=== PATIENT | female | born 1955 | race Caucasian/White ===

== ENCOUNTER 2024-02-25 10:14 | Outpatient (AMB) | payer MEDICARE, SELFPAY ==
--- NOTE | 2024-02-25 10:20 | HO.NEPHOV_ITS ---
Vital Signs 02/25/24 10:25 Height 5 ft 7 in Weight 175 lb BMI 27.4 BP 110/70 Blood Pressure Location Lt brachial Position Sitting Pulse 104 H Pulse Source Pulse Oximeter Pulse Oximetry (%) 94 Oxygen Delivery Method Room Air Intake Visit Reasons: Continuing care/ CON Aircrewman Required: No Accompanied by: Self / Same As Patient Allergies No Known Allergies Allergy (Verified 02/25/24 10:22) Medication List - Last Reconciled 02/25/24 by Tenzin Spencer MD amlodipine 10 mg PO DAILY aspirin 81 mg PO DAILY atorvastatin mg PO DAILY blood sugar diagnostic (Accu-Chek Connie Plus test strips) As directed canagliflozin (Invokana) 100 mg PO DAILY cetirizine 10 mg PO DAILY fluticasone propionate 50 mcg/actuation sprays intranasal folic acid 1 mg PO DAILY furosemide mg PO Q OTHER DAY gabapentin 600 mg PO TID linagliptin (Tradjenta) 5 mg PO DAILY metformin ER 1,000 mg PO BID mirabegron ER (Myrbetriq) 25 mg PO DAILY triamcinolone acetonide 0.1% 1 appl topical BID-TID valsartan 80 mg PO DAILY HPI Comments Details: Pleasant 68 woman with a history of hypertension and chronic alcohol use. She was initially seen for hyponatremia. Lisinopril has been switched to Valsartan She used to drink vodka 2-3 drinks a day along with plenty of water. Now she has cut down alcohol intake [facility] Medical History (Updated 02/25/24 @ 10:29 by Tenzin Spencer MD) Hyperlipidemia Hyposmolality and/or hyponatremia Essential (primary) hypertension Type 2 diabetes mellitus without complication Surgical History (Updated 02/25/24 @ 10:28 by Vianney Quinones MA) Hx of cataract surgery History of hip replacement H/O tubal ligation Family History (Updated 02/25/24 @ 10:29 by Vianney Quinones MA) Mother Heart disease Hypertension Social History (Updated 02/25/24 @ 10:29 by Vianney Quinones MA) Alcohol intake: current Patient Tobacco Use Status: Former Tobacco user Use of substances other than those prescribed or required for medical reasons: No Physical Exam Vital Signs: Last Vital Signs Pulse 104 H 02/25/24 10:25 BP 110/70 02/25/24 10:25 Pulse Ox 94 02/25/24 10:25 Oxygen Delivery Method Room Air 02/25/24 10:25 BMI result Body Mass Index 27.4 Const General: comfortable; No acute distress Orientation/consciousness: patient oriented x3 Eyes General: appearance normal, both eyes and all related structures Visual Collier: normal visual collier by confrontation Neck Neck: Yes supple and Yes no JVD Resp Effort & Inspection: normal respiratory effort and respiratory effort not decreased Auscultation: rhonchi Cardio Palpation: no palpable S3 and no palpable S4 Heart sounds: no rubs GI Inspection: Yes normal to inspection Palpation (GI): Soft to palpation Percussion: Yes normal to percussion Auscultation: normal bowel sounds General: Yes no CVA tenderness Back/Spine/Pelvis Back: no CVA tenderness Skin General skin exam: no petechiae and no purpura Neuro General: patient oriented x3 and no focal motor deficits Extrem General: No clubbing and No edema Results Reviewed Results Reviewed: 02/23/24 Na 136 Cr 1.1 Nephrology Results: No Data to Display Assessment & Plan Assessment & Plan (1) Essential (primary) hypertension: Code(s): I10 - Essential (primary) hypertension Category: Medical Plan: BP well controlled No changes in medications (2) Hyposmolality and/or hyponatremia: Code(s): E87.1 - Hypo-osmolality and hyponatremia Category: Medical Plan: Sodium is acceptable Keep PO water trestriction of 1L per 24 hr Limit alcohol intake.. Plan Edema- asymptomatic May be due to Amlodipine Monitor DM Maintain A1C < 7% Concur with SGLT-2 inhibitors Orders: Orders Basic Metabolic Panel 6 Months E87.1 - Hypo-osmolality and hyponatremia, I10 - Essential (primary) hypertension Total Protein Urine Random 6 Months E87.1 - Hypo-osmolality and hyponatremia, I10 - Essential (primary) hypertension Creatinine Urine 6 Months E87.1 - Hypo-osmolality and hyponatremia, I10 - Es sential (primary) hypertension Coding Level of Care Code Est Pt Level 4 (22250) Diagnoses Essential (primary) hypertension I10 Hyposmolality and/or hyponatremia E87.1
[2024-02-25 10:25] VITALS: BP 110/70; PULSE 104; O2SAT 94; BMI 27.4
== END 2024-02-25 10:40 | disposition home or self-care (01) ==
PROVIDERS: PCP Internal Medicine; Visit Provider Internal Medicine Hypertension Specialist
DX: I10 Essential (primary) hypertension (principal); E87.1 Hypo-osmolality and hyponatremia
CPT/HCPCS: 99214

== ENCOUNTER → 2024-02-25 10:14 | Outpatient (BNVA) | payer MEDICARE, SELFPAY | PROVIDERS: PCP Internal Medicine; Visit Provider Internal Medicine Hypertension Specialist | DX: I10 Essential (primary) hypertension (principal); E87.1 Hypo-osmolality and hyponatremia | CPT/HCPCS: 99212 ==

== ENCOUNTER 2024-08-25 13:47 | Outpatient (AMB) | payer MEDICARE, OTHER, SELFPAY ==
[2024-08-25 13:51] VITALS: BP 110/64; PULSE 113; O2SAT 94; BMI 26.9
--- NOTE | 2024-08-25 13:51 | HO.NEPHOV_ITS ---
Vital Signs 08/25/24 13:51 Height 5 ft 7 in Weight 172 lb BMI 26.9 BP 110/64 Blood Pressure Location Lt brachial Position Sitting Pulse 113 H Pulse Source Pulse Oximeter Pulse Oximetry (%) 94 Oxygen Delivery Method Room Air Intake Visit Reasons: 6 mon follow up/ LVM Electrical Electronics Engineers Required: No Accompanied by: Self / Same As Patient Allergies No Known Allergies Allergy (Verified 08/25/24 13:53) Medication List - Last Reconciled 08/25/24 by Tenzin Spencer MD amlodipine 10 mg PO DAILY aspirin 81 mg PO DAILY atorvastatin mg PO DAILY blood sugar diagnostic (Accu-Chek Connie Plus test strips) As directed canagliflozin (Invokana) 100 mg PO DAILY cetirizine 10 mg PO DAILY fluticasone propionate 50 mcg/actuation sprays intranasal folic acid 1 mg PO DAILY furosemide mg PO Q OTHER DAY gabapentin 600 mg PO TID linagliptin (Tradjenta) 5 mg PO DAILY metformin ER 1,000 mg PO BID mirabegron ER (Myrbetriq) 25 mg PO DAILY triamcinolone acetonide 0.1% 1 appl topical BID-TID valsartan 80 mg PO DAILY HPI Comments Details: Pleasant 68 woman with a history of hypertension and chronic alcohol use. She was initially seen for hyponatremia. Lisinopril has been switched to Valsartan She used to drink vodka 2-3 drinks a day along with plenty of water. Now she has cut down alcohol intake COUNTS INCLUDE 234 BEDS AT THE [facility] Medical History (Updated 02/25/24 @ 10:29 by Tenzin Spencer MD) Hyperlipidemia Hyposmolality and/or hyponatremia Essential (primary) hypertension Type 2 diabetes mellitus without complication Surgical History Hx of cataract surgery History of hip replacement H/O tubal ligation Family History Mother Heart disease Hypertension Social History Alcohol intake: current Patient Tobacco Use Status: Former Tobacco user Physical Exam Vital Signs: Last Vital Signs Pulse 113 H 08/25/24 13:51 BP 110/64 08/25/24 13:51 Pulse Ox 94 08/25/24 13:51 Oxygen Delivery Method Room Air 08/25/24 13:51 BMI result Body Mass Index 26.9 Results Reviewed Nephrology Results: No Data to Display Assessment & Plan Assessment & Plan (1) Essential (primary) hypertension: Code(s): I10 - Essential (primary) hypertension Category: Medical Plan: BP well controlled No changes in medications (2) Hyposmolality and/or hyponatremia: Code(s): E87.1 - Hypo-osmolality and hyponatremia Category: Medical Plan: Sodium is acceptable Keep PO water trestriction of 1L per 24 hr Limit alcohol intake.. Plan Edema- asymptomatic May be due to Amlodipine Monitor DM Maintain A1C < 7% Concur with SGLT-2 inhibitors Orders: Orders Basic Metabolic Panel 6 Months E87.1 - Hypo-osmolality and hyponatremia Basic Metabolic Panel 12 Months E87.1 - Hypo-osmolality and hyponatremia Coding Level of Care Code Est Pt Level 4 (69214) Diagnoses Essential (primary) hypertension I10 Hyposmolality and/or hyponatremia E87.1
--- OUTSIDE RECORDS SUMMARY | 2024-08-25 16:56 | XMS_ITS | Encounter Summary ---
Author Organization [facility] [place] [address] Care Team Providers Care Restaurant Floor Manager Name Role Phone Tenisha Cruz MD Primary Care Provider [phone] Reason for Visit * Reason Onset Date Comments FYI 08/06/2024 Encounter Details Date Type Department Care Team (Late st Contact Info) Description 08/06/2024 Telephone Internal Medicine - [place] [address] [place] [address] Jen Ozuna, RN Social History Tobacco Use Types Packs/Day Years Used Date Smoking Tobacco: Never Smokeless Tobacco: Never Alcohol Use Standard Drinks/Week Comments Yes 0 (1 standard drink = 0.6 oz pur e alcohol) Comments No Sex and Gender Information Value Date Recorded Sex Assigned at Female 05/11/2024 11:18 AM EST Legal Sex Female 3:37 AM EST Gender Identity Female 05/11/2024 11:18 AM EST Sexual Orientation Straight 05/11/2024 11 :18 AM EST documented as of this encounter Progress Notes * Jen Ozuna RN - 08/06/2024 1:37 PM EST [facility] [place], contact # [phone], called to report finding on physical exam today, L sided carotid bruit +1; pt is asymptomatic, BP 118/62 HR 80 at rest; recommendation of US of carotid artery; he did not feel this was emergent and can be evaluated at upcoming appt next week 08/11/2023 documented in this encounter Plan of Treatment Upcoming Encounters Date Type Department Care Team (Late st Contact Info) Description 11/08/2024 11:15 AM EDT [facility] [place] [address] [place] [id number] Georgina Gilbert PA [address] [place], [place] [id number] 02/08/2025 11:00 AM EDT Office Visit Internal Medicine - [place] [address] [place] [phone] Tenisha Cruz MD [address] [place] [address] documented as of this encounter Visit Diagnoses Not on filedocumented in this encounter Care Teams Restaurant Floor Manager Relationship Specialty Start Date End Date Tenisha Cruz MD [address] [place] [address] PCP - General Internal Medicine 02/20/22 documented as of this encounter
--- OUTSIDE RECORDS SUMMARY | 2024-08-25 16:56 | XMS_ITS | Clinical Summary ---
Author Organization [facility] Address [address] [place] [address] Phone Care Team Providers Care Deaf/Hard Of Hearing Specialist Name Role Phone Skip Levy MD Primary Care Provider Unavail able Allergies No known active allergies Medications aspirin 81 MG chewable tablet Chew 81 mg in the morning. Active atorvastatin (LIPITOR) 20 MG tablet Take 20 mg by mouth 1 (one) time each day 05/30/20 21 Active Canagliflozin (Invokana) 100 MG tablet Take 1 tablet by mouth 1 (one) time each day 09/17/19 23 Active cetirizine (ZyrTEC) 10 MG tablet Take 10 mg by mouth 1 (one) time each day 09/15/19 23 Active folic acid (FOLVITE) 1 MG tablet Take 1,000 mcg by mouth 1 (one) time each day 09/02/19 23 Active furosemide (LASIX) 20 MG tablet Take 20 mg by mouth 1 (one) time each day 08/26/19 23 Active gabapentin (NEURONTIN) 300 MG capsule Take 600 mg by mouth in the morning and 600 mg at noon and 600 mg in the evening. 09/19/19 23 Active linaGLIPtin (Tradjenta) 5 MG tablet Take 5 mg by mouth 1 (one) time each day 05/31/20 21 Active metFORMIN XR (GLUCOPHAGE-XR ) 500 MG 24 hr tablet TAKE 2 TABLETS (1,000 MG TOTAL) BY MOUTH 2 (TWO) TIMES A DAY BEFORE BREAKFAST AND DINNER. 08/25/19 23 Active Multiple Vitamins-Sherman als (Strovite ONE) tablet Take 1 tablet by mouth 1 (one) time each day 05/13/20 17 Active Na Sulfate-K Sulfate-Mg Sulf 17.5-3.13-1.6 GM/177ML solution Follow directions provided by physician's office. 06/11/20 21 Active fluticasone (FLONASE) 50 MCG/ACT nasal spray SPRAY/APPLY 1 SPRAY IN EACH NOSTRIL DAILY 11/04/19 23 Active amLODIPine (NORVASC) 10 MG tablet Take 10 mg by mouth 1 (one) time each day 11/16/19 23 Active triamcinolone (KENALOG) 0.1 % cream APPLY TO AFFECTED AREA TWICE A DAY 12/19/19 23 Active valsartan (DIOVAN) 80 MG tablet TAKE 1 TABLET BY MOUTH 1 TIME EACH DAY. 90 tablet 3 07/30/19 25 Active valsartan (DIOVAN) 80 MG tablet Take 1 tablet (80 mg total) by mouth 1 (one) time each day 90 tablet 3 07/14/19 24 025 Discontinued Active Problems Problem Noted Date Diagnosed Date Urgent desire to urinate 08/01/2023 Neuropathy due to type 2 diabetes mellitus 09/24 Hypertension 09/24/2022 Hyperlipidemia 09/24/2022 Diabetes mellitus 09/24/2022 Depressive disorder 09/24/2022 Alcoholism 09/24/2022 Vitamin B deficiency 09/24/2022 Tachycardia 06/26/2022 Posterior rhinorrhea 06/26/2022 Hyponatremia 06/26/2022 Weight increased 06/26/2022 Overview (03/30/2024): Replacing diagnoses that were inactivated after the 03/30/24 Regulatory Import Hypercalcemia 06/05/2022 Type 2 diabetes mellitus with hyperglycemia 12/2021 Nuclear senile cataract 11/06/2020 Bilateral age-related cataract 11/06/2020 Laryngopharyngeal reflux 05/13/2017 Anxiety 05/13/2017 Type 2 diabetes mellitus in obese 05/13/2017 Encounters Date Type Department Care Team Description 07/29/2024 Refill [facility] [address] [place] [phone] Gabriel Head MD from Last 3 Months Immunizations Name Administration Dates Next Due Influenza Vaccine, Quadrival ent, Adjuvanted 03/07/2023 Influenza, MDCK, PF, Quadrivalent 2019,04/05/2019,03/31/2017,2014 Influenza, Quadrivalent, Pre servative Free 02/22/2022,04/02/2021,03/26/2018,2015 Influenza, Quadrivalent, Wit h Preservative 03/26/2018 Moderna Sars-cov-2 (Covid-19 ) Vaccine, Mrna, Cruz Protein 03/31/2023 Pfizer SARS-COV-2 06/12/2021,10/12/2020,09/22/19 Pneumococcal Conjugate 13-Valent 04/19/2022 Shingrix 05/30/2022,02/01/2022 Tdap 10/27/2017 Zoster 05/30/2022 Family History Relation Status Comments Father Mother Social History Tobacco Use Types Packs/Day Years Used Date Smoking Tobacco: Never Smokeless Tobacco: Never Tobacco Cessation:Counseling Given: No Comments Unknown Sex and Gender Information Value Date Recorded Sex Assigned at Not on file Legal Sex Female 8:57 AM EST Gender Identity Not on file Sexual Orientation Not on file Last Filed Vital Signs Vital Sign Reading Time Taken Comments Blood Pressure 112/60 08/26/2023 1:35 PM EST Pulse 92 08/26/2023 1:35 PM EST Temperature - - Respiratory Rate - - Oxygen Saturation 94% 08/26/2023 1:35 PM EST Inhaled Oxygen Concentration - - Weight 68 kg (150 lb) 08/26/2023 1:35 PM EST Height - - Body Mass Index - - Plan of Treatment Upcoming Encounters Date Type Department Care Team (Late st Contact Info) Description 09/14/2024 2:45 PM EDT Office Visit [facility] [address] [facility] [address] [place] [phone] Gabriel Head MD [address] [facility] [address] [place] [phone] Health Maintenance Due Date Last Done Comments Breast Cancer Screening 1957 Colorectal Cancer Screening: Annual FOBT 2006 Colorectal Cancer Screening: Colonoscopy 2006 Colorectal Cancer Screening: Sigmoidoscopy 2006 Pneumococcal Vaccine: 65+ Years (2 of 2 - PPSV23 or PCV20) 06/14/2022 04/19/2022 Diabetes: Ophthalmology Exam 08/08/2022 Diabetes: Pedal Pulse Checked 08/08/2022 Diabetes: Sensory Foot Exam 08/08/2022 Diabetes: Visual Foot Exam 08/08/2022 Diabetes: Hemoglobin A1C 10/30/2023 08/01/2023, 06/30 Influenza Vaccine (#1) 2024 3, 02/22/2022, 04/02/2021, Additional history exists Hepatitis B Vaccine Aged Out No longe r eligible based on patient's age to complete this topic Care Teams Deaf/Hard Of Hearing Specialist Relationship Specialty Start Date End Date Skip Levy MD [address] [place] [address] PCP - General Internal Medicine 02/04/23
--- OUTSIDE RECORDS SUMMARY | 2024-08-25 16:56 | XMS_ITS | Encounter Summary ---
Author Organization [facility] Address [address] [place] [address] Care Team Providers Care Fire Supervisor Name Role Phone Nkechi Cowan APRN Primary Care Provider [phone] Encounter Details Date Type Department Care Team (Late st Contact Info) Description 06/05/2021 Scanned Document [facility] [address] [place] [address] Provider, External, [address] [place] [address] Social History Tobacco Use Types Packs/Day Years Used Date Smoking Tobacco: Never Assessed Sex and Gender Information Value Date Recorded Sex Assigned at Not on file Gender Identity Not on file Sexual Orientation Not on file documented as of this encounter Plan of Treatment Not on file documented as of this encounter Visit Diagnoses Not on filedocumented in this encounter Care Teams Fire Supervisor Relationship Specialty Start Date End Date Nkechi Cowan APRN PCP - General Family Medicine 06/05/21 documented as of this encounter
--- OUTSIDE RECORDS SUMMARY | 2024-08-25 16:56 | XMS_ITS | Clinical Summary ---
Author Organization [facility] Address [address] [place] [address] Care Team Providers Care Product Picker Name Role Phone Unavailable Primary Care Provider Unavailabl e Social History Tobacco Use Types Packs/Day Years Used Date Smoking Tobacco: Never Assessed Comments Unknown Sex and Gender Information Value Date Recorded Sex Assigned at Not on file Legal Sex Female 5:43 PM EST Gender Identity Not on file Sexual Orientation Not on file Plan of Treatment Health Maintenance Due Date Last Done Comments Colorectal Cancer: COLONOSCO PY Screening every 10 yrs (or Modifier) 1957 Depression: Screening Annual ly using PHQ-2/9 in Adults 18 yrs or above (or HM Modifier)([facility]) 1975 Hepatitis C Virus Infection in Adolescents and Adults: Screening (or Modifier) ([facility]) 1975 SDCA Screening Reminder: Suzie castillo for all adults ([facility]) 1975 Tobacco Smoking Cessation: i n Adults excluding Women: Behavioral and Pharmacotherapy Interventions ([facility]) 1975 Colorectal Cancer Screening 45 -75 Yrs (or HM Modifier) 2002 Colorectal Cancer: FLEXIBLE SIGMOIDOSCOPY Screening every 5 yrs 2002 Colorectal Cancer: Fecal Immunochemical Test (FIT) Annually [facility] 2002 Colorectal Cancer: High-sens itivity gFOBT Screening Annually [facility] 2002 Colorectal Cancer: Stool Col oguard Screening every 3 yrs 2002 Colorectal Cancer:CT Colonog brett Screening every 5 yrs 2002 Lipid Screening: Every 5 yrs for Women aged 45+ (or HM Modifier) ([facility]) 2003 Breast Cancer: Screening Suzie anna age 50-74 yrs (or HM Modifier)([facility]) 2007 Zoster/Shingles Vaccine Seri es Screening: Adults aged 18+ yrs (or HM Modifiers)([facility]) (1 of 2) 2007 Osteoporosis Screening to Pr event Fractures: Women aged 65 years+ ([facility]) 2022 Pneumococcal Vaccination Scr eening: Patients 65+ yrs of age ([facility]) (1 of 1 - PCV) 2022 Flu Vaccination: Ages 65+: Y early High Dose Recommended (or Modifier)([facility]) 01/29/2024 03/17/2020 COVID-19 Vaccine Screening: Initial Series and Booster Status ([facility]) ( - 2023- season) 2024 06/12/2021, 10/12/2020, 09/21/2020 DTaP/Tdap/Td Vaccines ([facility]) (2 - Td or Tdap) 10/28/2027 10/27/2017 RSV Vaccines (1 - 1-dose 75+ series) 2032 [employer] Devices Not on file Insurance [place] MEDICAID
--- OUTSIDE RECORDS SUMMARY | 2024-08-25 16:56 | XMS_ITS | Clinical Summary ---
Author Organization [facility] Address [address] [place] [address] Care Team Providers Care Process Engineering Technician Name Role Phone Ruy Guido Primary Care Provider Unav ailable Social History Tobacco Use Types Packs/Day Years Used Date Smoking Tobacco: Never Assessed Comments Unknown Sex and Gender Information Value Date Recorded Sex Assigned at Not on file Legal Sex Female 9:02 PM EDT Gender Identity Not on file Sexual Orientation Not on file Plan of Treatment Health Maintenance Due Date Last Done Comments Hepatitis C Screening 1955 DTaP/Tdap/Td (1 - Tdap) 1975 Mammogram/Breast Imaging 1997 Colon Cancer Screening 2002 Pneumococcal 50+ years (1 of 1 - PCV) 2007 Zoster (Shingrix) (1 of 2) 2007 Bone Density 2022 COVID-19 Vaccine ( - 2023-2 5 season) 2024 Influenza (#1) 2024 RSV (1 - 1-dose 75+ series) 2032 HPV Vaccine Aged Out No longer eligi ble based on patient's age to complete this topic Hep A Aged Out No longer eligi ble based on patient's age to complete this topic Hep B Aged Out No longer eligi ble based on patient's age to complete this topic Hib Aged Out No longer eligi ble based on patient's age to complete this topic Meningococcal ACWY Aged Out No longer eligible based on patient's age to complete this topic Pap Smear Discontinued Zoster (Zostavax) Discontinued Care Teams Process Engineering Technician Relationship Specialty Start Date End Date Ruy Guido PCP - General 02/03/23
--- OUTSIDE RECORDS SUMMARY | 2024-08-25 16:56 | XMS_ITS | Clinical Summary ---
Author Organization [facility] Address [address] [place] [address] Care Team Providers Care Bank Compliance Officer Name Role Phone Nkechi Cowan APRN Primary Care Provider [phone] Allergies No known active allergies Medications Medication Sig Dispensed Refills Start Date End Date Status amLODIPine (NORVASC) 5 MG tablet 06/01/2021 Active atorvastatin (LIPITOR) 20 MG tablet 05/30/2021 Active Invokana 300 MG Tab tablet 06/02/2021 Active captopril (CAPOTEN) 25 MG tablet 04/23/2021 Active folic acid (FOLVITE) 1 MG tablet 05/29/2021 Active Tradjenta 5 MG Tab 05/31/2021 Active gabapentin (NEURONTIN) 300 MG capsule 06/04/2021 Active metFORMIN (GLUCOPHAGE) 500 MG tablet 05/25/2021 Active Accu-Chek Connie Plus strip 05/25/2021 Active aspirin 81 MG chewable tablet Chew 81 mg daily. Ac tive axsxpx-cvlrytpzd-zvk nesium sulfates (Suprep Bowel Prep Kit) 17.5-3.13-1.6 GM/177ML Solution solutionIndications: Colon cancer screening Follow directions provided by physician's office. 177 mL 06/11/2021 Active bisacodyl (DULCOLAX) 5 MG EC tabletIndications:Co kiki cancer screening Take 4 tablets (20 mg total) by mouth once. Take prior to starting to drink prep, on day prior to colonoscopy. 4 tablet 06/11/2021 Active Immunizations Name Administration Dates Next Due Covid-19 MRNA Vaccine - Pfiz er 12+ (Purple Cap) 06/12/2021,10/12/2020,09/21/2020 Social History Tobacco Use Types Packs/Day Years Used Date Smoking Tobacco: Never Assessed Sex and Gender Information Value Date Recorded Sex Assigned at Not on file Gender Identity Not on file Sexual Orientation Not on file Last Filed Vital Signs Vital Sign Reading Time Taken Comments Blood Pressure - - Pulse - - Temperature - - Respiratory Rate - - Oxygen Saturation - - Inhaled Oxygen Concentration - - Weight 72.6 kg (160 lb) 06/11/2021 10:21 AM EST Height 167.6 cm (5' 6 ) 06/11/2021 10:21 AM EST Body Mass Index 25.82 06/11/2021 10:21 AM EST Plan of Treatment Health Maintenance Due Date Last Done Comments Hepatitis C Virus Screening 1955 DTaP/Tdap/Td Vaccines (1 - Tdap) 1976 Mammogram 1997 Pneumococcal Vaccines 50+ (1 of 1 - PCV) 2007 Zoster (Shingles) Vaccine (1 of 2) 2007 RSV Vaccine 60 years and older and Patients (1 - Risk 60-74 years 1-dose series) 2017 DXA Bone Density (Females,Ages 65 and older) 2022 Influenza Vaccine 01/29/2024 04/02/2021 COVID-19 Vaccine ( season) 2024 06/12/2021, 10/12/2020, 09/21/2020 Colonoscopy 09/11/2031 09/10/2021 Hemoglobin A1C Discontinued 11/06/2020 Hepatitis B Vaccines Aged Out No long er eligible based on patient's age to complete this topic Care Teams Bank Compliance Officer Relationship Specialty Start Date End Date Nkechi Cowan APRN PCP - General Family Medicine 06/05/21
--- OUTSIDE RECORDS SUMMARY | 2024-08-25 16:56 | XMS_ITS | Encounter Summary ---
Author Organization [facility] [address] Care Team Providers Care Electronic Prepress System Operator Name Role Phone Tenisha Cruz MD Primary Care Provider [phone] Reason for Referral * Imaging (Routine) - Pending Review Specialty Diagnoses / Procedures Referred By Timbo cox Referred To Contact Diagnoses Left carotid bruit Procedures Vascular US duplex carotid bilateral Estelita Tee MD [address] [place] [address] Phone: tel: fax: [facility] [place] Referral ID Status Reason Start Date Expiration Date V isits Requested Visits Authorized [id number] Pending Review 08/11/2024 08/11/2025 1 1 * Imaging (Routine) - Pending Review Specialty Diagnoses / Procedures Referred By Timbo cox Referred To Contact Radiology Diagnoses Encounter for screening mammogram for malignant neoplasm of breast Procedures MG Mammo Digital Screening bilat Esteltia Tee MD [address] [place] [address] Phone: tel: fax: [facility] [place] Referral ID Status Reason Start Date Expiration Date V isits Requested Visits Authorized [id number] Pending Review 08/11/2024 08/11/2025 1 1 Reason for Visit * Reason Comments Annual Exam Medicare wellness Encounter Details Date Type Department Care Team (Late st Contact Info) Description 08/11/2024 11:00 AM EST Office Visit Internal Medicine - [place] [address] [place] [id number] Estelita Tee MD [address] [place] [address] Medicare annual wellness visit, subsequent (Primary Dx); Encounter for screening mammogram for malignant neoplasm of breast; Mixed hyperlipidemia; Left carotid bruit; Annual physical exam; Type 2 diabetes mellitus without complication, without long-term current use of insulin ([facility]); Localized swelling of lower extremity Social History Tobacco Use Types Packs/Day Years [...] AM EST documented as of this encounter Last Filed Vital Signs Vital Sign Reading Time Taken Comments Blood Pressure 116/66 08/11/2024 10:58 AM EST Pulse 101 08/11/2024 10:58 AM EST Temperature 36.3 ??C (97.3 ??F) 08/11/2024 10:[address] Respiratory Rate - - Oxygen Saturation 96% 08/11/2024 10:58 AM EST Inhaled Oxygen Concentration - - Weight 78.9 kg (174 lb) 08/11/2024 10:58 AM EST Height 168.9 cm (5' 6.5 ) 08/11/2024 10:58 AM ES T Body Mass Index 27.66 08/11/2024 10:58 AM EST documented in this encounter Progress Notes * Estelita Tee MD - 08/11/2024 11:50 AM ESTAssociated Problem(s): Left carotid bruit Asymptomatic, incidental finding during a wellness visit at home. Will order US of carotid arteries * Estelita Tee MD - 08/11/2024 11:48 AM ESTAssociated Problem(s): Localized swelling of lower extremity She reports improvement in leg swelling with the use of compression stockings and elevating her feet. She is currently taking Lasix 20 mg every other day, which helps manage the swelling. She is advised to continue these measures and avoid increasing the frequency of Lasix due to potential kidney side effects. * Estelita Tee MD - 08/11/2024 11:48 AM ESTAssociated Problem(s): Diabetes mellitus (CMS/HCC) Her diabetes is currently under control. Follows with endocrinology * Estelita Tee MD - 08/11/2024 11:47 AM ESTAssociated Problem(s): Hyperlipidemia Her triglyceride levels were significantly elevated during the last assessment ordered by shae LANCASTER. A lipid panel will be ordered, and she is advised to fast prior to the test. Currently on liptor 20 mg qdaily * Estelita Tee MD - 08/11/2024 11:46 AM ESTAssociated Problem(s): Annual physical exam Patient is a 69 y.o. female with pmhx T2DM, HLD, hx of alcohol use disorder, CKD who presents for annual physical. Vital signs and physical exam wnl Discussed screenings, Her last mammogram, conducted in 2023, was normal, indicating the need for a subsequent mammogram. Her bone density test, performed in 05/2022, suggests that a repeat test is due. She is current with her influenza and COVID-19 vaccinations, having received the latter in 03/2024 at [facility]. She has not yet received the RSV vaccine. She was administered the shingles vaccine and received the pneumonia vaccine in 2021. Will order lipid panel * Estelita Tee MD - 08/11/2024 11:00 AM EST Images from the original note were not included. Medicare Annual Wellness Visit Note Patient Name: Karla Jameson Date of : 1955 Race: White Ethnicity: Not Hispan/Lat Date of Service: 08/11/2024 History of Present Illness History of Present Illness The patient is a 69-year-old female with pmhx T2DM, CKD, lower extremity swelling who presents for her Medicare wellness visit. Please see annual physical note for preventive care discussion. Comprehensive Medical and Social History: Patient Active Problem List Diagnosis Age-related cataract of both eyes Alcoholism (CMS/HCC) Anxiety Deficiency of other specified B group vitamins Depressive disorder Diabetes mellitus (CMS/HCC) Diabetic neuropathy associated with type 2 diabetes mellitus (CMS/HCC) Hypercalcemia Hyperlipidemia Hypertension Hyponatremia Laryngopharyngeal reflux Nuclear senile cataract of both eyes Post-nasal drip Tachycardia Type 2 diabetes mellitus with hyperglycemia (CMS/HCC) Type 2 diabetes mellitus with obesity (CMS/HCC) Urinary urgency Vitamin D deficiency Weight gain Localized swelling of lower extremity No Known Allergies Current Outpatient Medications Medication Sig Dispense Refill amLODIPine (NORVASC) 10 mg tablet TAKE 1 TABLET BY MOUTH EVERY DAY 90 tablet 1 aspirin 81 mg EC tablet Take 1 tablet (81 mg total) by mouth daily. atorvastatin (LIPITOR) 20 mg tablet Take 1 tablet (20 mg total) by mouth 1 (one) time each day. 90 tablet 0 blood sugar diagnostic (Accu-Chek Connie Plus test strp) test strip USE TO TEST BLOOD SUGAR DAILY canagliflozin (Invokana) 300 mg tablet cetirizine (ZyrTEC) 10 mg tablet Take 1 tablet (10 mg total) by mouth 1 (one) time each day. 90 tablet 0 fluticasone propionate (FLONASE) 50 mcg/actuation nasal spray spray/apply 1 spray in each nostril daily. folic acid (FOLVITE) 1 mg tablet TAKE 1 TABLET EVERY DAY furosemide (LASIX) 20 mg tablet Take 1 tablet (20 mg total) by mouth every other day. 45 tablet 0 gabapentin (NEURONTIN) 300 mg capsule Take 2 capsules (600 mg total) by mouth 2 (two) times a day AND 3 capsules (900 mg total) at bedtime. 210 each 2 metFORMIN XR (GLUCOPHAGE-XR) 500 mg 24 hr tablet TAKE 2 TABLETS (1,000 MG TOTAL) BY MOUTH 2 (TWO) TIMES A DAY BEFORE BREAKFAST AND DINNER. 360 tablet 1 mirabegron (Myrbetriq) 25 mg 24 hr tablet TAKE 1 TABLET (25 MG TOTAL) BY MOUTH DAILY. 90 tablet 0 Tradjenta 5 mg tablet TAKE 1 TABLET (5 MG TOTAL) BY MOUTH DAILY. 90 tablet 2 triamcinolone (KENALOG) 0.1 % cream APPLY TO AFFECTED AREA TWICE A DAY valsartan (DIOVAN) 80 mg tablet Take 1 tablet (80 mg total) by mouth daily. empagliflozin (Jardiance) 10 mg tablet Take 1 tablet (10 mg total) by mouth 1 (one) time each day in the morning. (Patient not taking: Reported on 08/11/2024) 30 tablet 0 No current facility-administered medications for this visit. Past Medical History: Diagnosis Date Alcoholism ([facility]) DX:Alcoholism ([facility]) Anxiety DX:Anxiety Cataract DX:Cataract Deficiency of other specified B group vitamins (CODE) DX:Deficiency of other specified B group vitamins (CODE) Depression DX:Depression Diabetes mellitus ([facility]) DX:Diabetes mellitus ([facility]) Diabetic neuropathy associated with type 2 diabetes mellitus ([facility]) DX:Diabetic neuropathy associated with type 2 diabetes mellitus ([facility]) Hyperlipidemia DX:Hyperlipidemia Hypertension DX:Hypertension Vitamin D deficiency DX:Vitamin D deficiency Past Surgical History: Procedure Laterality Date CATARACT EXTRACTION W/ INTRAOCULAR LENS IMPLANT Right 11/14/2020 PROCEDURE:CATARACT EXTRACTION W/ INTRAOCULAR LENS IMPLANT;COMMENT:Procedure: RIGHT -EXTRACTION CATARACT WITH IOL IMPLANT; Surgeon: Gerald Torres MD; Location: [facility]; Service: Ophthalmology; Laterality: Right; CATARACT EXTRACTION W/ INTRAOCULAR LENS IMPLANT Left 11/22/2020 PROCEDURE:CATARACT EXTRACTION W/ INTRAOCULAR LENS IMPLANT;COMMENT:Procedure: LEFT EXTRACTION CATARACT WITH IOL IMPLANT; Surgeon: Gerald Torres MD; Location: [facility]; Service: Ophthalmology; Laterality: Left; COLONOSCOPY N/A 09/10/2021 PROCEDURE:COLONOSCOPY;COMMENT:Procedure: COLONOSCOPY; Surgeon: Lucy Szymanski MD; Location: [facility]; Service: Gastroenterology; Laterality: N/A; HIP SURGERY Left PROCEDURE:HIP SURGERY JOINT REPLACEMENT Left PROCEDURE:JOINT REPLACEMENT;COMMENT:HIP TOTAL HIP ARTHROPLASTY Left PROCEDURE:TOTAL HIP ARTHROPLASTY TUBAL LIGATION PROCEDURE:TUBAL LIGATION Social History Socioeconomic History Marital status: Spouse name: None Number of children: None Years of education: 14 Highest education level: None Occupational History None Tobacco Use Smoking status: Never Smokeless tobacco: Never Vaping Use Vaping status: Never Used Substance and Sexual Activity Alcohol use: Yes Drug use: No Sexual activity: None Comment: has not been sexually active x 13 years Other Topics Concern None Social History Narrative Date:05/13/17 Born in [place],came to [place] at age 11, is a [place] citizen, was by in 1991 when was in [facility]. Lives with: category consultant Raffaele x 1 year, but they have been together x 13 years.[facility] Home: single family home Gun s: none Safe: feels safe in home, in neighborhood, in relationship Transportation: has car, license; wears seatbelt Children: 2 children 2 boys, first grandchild on the way in September 2017 Speaks kenyan Moved to [place] about 1 year ago from [place] to move in with Raffaele. 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 Family History Problem Relation Name Age of Onset Hypertension Mother Hyperlipidemia Mother Heart disease Mother No Known Problems Father Hypertension Sister x 2 sisters Hypertension Brother Cancer Maternal Grandmother No Known Problems Maternal Grandfather No Known Problems Paternal Grandmother No Known Problems Paternal Grandfather Cervical cancer Neg Hx Uterine cancer Neg Hx Colon cancer Neg Hx Breast cancer Neg Hx Immunizations: Immunization History Administered Date(s) Administered COVID-19 (Moderna/Spikevax) 12yo and older 03/31/2023, 03/05/2024 Influenza Quadravalent, 0.5ml (Fluad) 65yo and older 03/07/2023 Influenza Quadravalent, MDCK, 0.5ml, preservative free (Flucelvax) 6mo and older 03/01/2015, 03/31/2017, 04/05/2019, 03/17/2020 Influenza Quadrivalent, 0.5ml, preservative free (Fluarix; FluLaval; Fluzone) ages 6mo and older (Afluria) 3yo and older 04/04/2016, 03/26/2018, 03/30/2021, 04/02/2021, 02/22/2022 Influenza Quadrivalent, with preservative (Fluzone; Afluria) 6mo and older 03/26/2018 Influenza trivalent, 0.5mL (Fluzone High-dose) 65yo and older 03/05/2024 Influenza trivalent, 0.5mL, preservative free (Fluarix; FluLaval; Fluzone) ages 6mo and older (Afluria) 3 years and older 03/01/2015 Pfizer SARS-CoV-2 COVID-19, mRNA, LNP-S, preservative free 09/21/2020, 10/12/2020, 06/12/2021 Pneumococcal conjugate 13 valent (Prevnar 13, PCV13) 2mo and older 04/19/2022 Tdap Tetanus diptheria acellular pertussis (Boostrix; Adacel) 7yo and older 10/27/2017 Zoster Live 05/30/2022 Zoster recombinant (Shingrix) 19yo and older 02/01/2022, 05/30/2022 Zoster, Unspecified 02/01/2022, 05/30/2022 Hospitalization in the last year: Has not been hospitalized in last year Current Providers and Suppliers: Patient Care Team: Tenisha Cruz MD as PCP - General (Internal Medicine) Patient does not have/use current medical supplier Risk Assessments: Cognitive Function Assessment Mini-Cognitive screening performed, results reviewed Clock Drawing Test: Normal Word Recall: Two Words Mini Cog Score: 4 Mini Cog Results: Negative screen for dementia Depression Screening (PHQ2/9): Depression Screening Will the patient answer the depression risk questions?: Yes Over the last 2 weeks, how often have you been bothered by little interest or pleasure in doing things?: Not at all Over the last 2 weeks, how often have you been bothered by feeling down, depressed, or hopeless?: Not at all Depression Risk: 0 PHQ9 Full Set of Questions Over the last 2 weeks, how often have you been bothered by little interest or pleasure in doing things?: Not at all Over the last 2 weeks, how often have you been bothered by feeling down, depressed, or hopeless?: Not at all Depression Risk Score NEW: 0 Depression Plan : Screen was negative Pain: Pain Medications: Patient does not take any opioid medications BMI: Body mass index is 27.66 kg/m??. The BMI is above average. The patient received dietary education because they have an above normal BMI. Functional Ability and Level of Safety Review Health Status: In general, the patient reports health as: good In general, patient reports life as: good Patient reports sleep pattern as: sleeping well Have you seen a dentist in the last year?: No Activity of Daily Living (ADLs): Do you need help from others for your personal care such as eating, dressing, toileting, or gettingaround the house?: No Do you experience incontinence?: No Instrumental Activities of Daily Living (IADLs): Do you need help with using the telephone?: No Do you need help with shopping?: No Do you need help with food preparation?: No Do you need help with housekeeping?: No Do you need help with laundry?: No Do you need help handling finances?: No Do you drive?: Yes Do you manage your own medication?: Yes, independent Physical Activity: Do you exercise for about 20 minutes or more three days a week?: No Nutritional Assessment: Do you eat a balanced diet including daily serving of fruits, vegetables, and whole grains?: Yes, always Social Influencer of Health (SIOH): Fall Risk: Have you fallen in the past year? no. Are you worried about falling? yes. . Hearing: No data recorded Vision Screening: Required for Medicare Initial Preventative Physical Exam (IPPE) No data recorded Objective BP 116/66 (BP Location: Left arm, Patient Position: Sitting, BP Cuff Size: Large adult) Pulse 101 Temp 36.3 ??C (97.3 ??F) (Temporal) Ht 1.689 m (66.5 ) Wt 78.9 kg (174 lb) BMI 27.66 kg/m??SpO2: 96 % ASSESSMENT AND PLAN: Patient presented today for an Subsequent Medicare Wellness Visit with a physical examination. Advance Care Planning Discussion: Advance Care Planning was discussed. Karla reports that she does not have advance directives or surrogate decision maker. Patient has not identified their surrogate decision maker. During the visit we discussed: Available Advanced Directive forms discussed A total time of 16 minutes or greater was spent on Advance Care Planning today :No No problem-specific Assessment & Plan notes found for this encounter. Fall Prevention Education Discussed: paying attention to surroundings and clear pathways/stairs Estelita Tee MD INTERNAL MEDICINE - [address] [facility] [address] Dept: [phone] Dept * Estelita Tee MD - 08/11/2024 11:00 AM EST [address] [place] [address] [address] [place] [address] Karla Giron Gisell 1955 69 y.o. Date: 08/11/2024 Chief Complaint: Chief Complaint Patient presents with Annual Exam Medicare wellness SUBJECTIVE: The patient is a 69-year-old female with pmhx T2DM, CKD, lower extremity swelling who presents for her annual physical. Hospitalizations - She has not required hospitalization within the past year. Ophthalmological Examination - Her last ophthalmological examination was conducted in 2023, following her cataract surgery, withno abnormalities detected. - A follow-up appointment is scheduled for 01/2025. Dental Check-up - She has not had a dental check-up recently but has an upcoming appointment due to the presence ofseveral cavities. Mammogram - Her most recent mammogram, conducted in 2023, yielded normal results. Bone Density Test - She underwent a bone density test for the first time in 05/2022. Pap Smear - She is uncertain about the date of her last Pap smear but believes it was less than 5 years ago. - She has no history of hysterectomy. Vaccinations - She is up-to-date with her influenza and COVID-19 vaccines, having [facility] the [facility]. - She has not received the RSV vaccine but has been administered the shingles vaccine. - She received the pneumonia vaccine in 2021. Substance Use - She reports no current tobacco use but admits to smoking at the age of 17 or 18. - She also reports no current marijuana use, although she has used it in the past. - Her alcohol consumption is limited to one drink before dinner, approximately twice a month. Physical Activity - Her physical activity is primarily limited to walking around her house due to a fear of falling. - She has enrolled in the [employer] program and plans to attend a balance class prior to the [employer] class. Neurological Symptoms - She reports no facial drooping, sudden episodes of arm weakness, or sudden changes in vision. Leg Swelling - She reports that her leg swelling has improved. - She uses compression stockings and takes Lasix every other day, which she finds beneficial. - She notes that the swelling occasionally worsens towards the end of the day but is manageable with the use of compression stockings and by elevating her feet during the day. Medication - She is on a daily regimen of Lipitor 20 mg for cholesterol management. SOCIAL HISTORY She does not smoke cigarettes currently but tried them when she was younger. She tried marijuana years ago but does not currently use it. She drinks alcohol occasionally, about twice a month, typically one drink before dinner. MEDICATIONS Current: Lasix, Lipitor IMMUNIZATIONS She is up to date with the influenza vaccine. She received the COVID-19 vaccine in March at [facility]. She has had the shingles vaccine. She received the pneumonia vaccine in 2021. PHQ-2: 0 CURRENT MEDICATIONS: Current Outpatient Medications Medication Sig Dispense Refill amLODIPine (NORVASC) 10 mg tablet TAKE 1 TABLET BY MOUTH EVERY DAY 90 tablet 1 aspirin 81 mg EC tablet Take 1 tablet (81 mg total) by mouth daily. atorvastatin (LIPITOR) 20 mg tablet Take 1 tablet (20 mg total) by mouth 1 (one) time each day. 90 tablet 0 blood sugar diagnostic (Accu-Chek Connie Plus test strp) test strip USE TO TEST BLOOD SUGAR DAILY canagliflozin (Invokana) 300 mg tablet cetirizine (ZyrTEC) 10 mg tablet Take 1 tablet (10 mg total) by mouth 1 (one) time each day. 90 tablet 0 fluticasone propionate (FLONASE) 50 mcg/actuation nasal spray spray/apply 1 spray in each nostril daily. folic acid (FOLVITE) 1 mg tablet TAKE 1 TABLET EVERY DAY furosemide (LASIX) 20 mg tablet Take 1 tablet (20 mg total) by mouth every other day. 45 tablet 0 gabapentin (NEURONTIN) 300 mg capsule Take 2 capsules (600 mg total) by mouth 2 (two) times a day AND 3 capsules (900 mg total) at bedtime. 210 each 2 metFORMIN XR (GLUCOPHAGE-XR) 500 mg 24 hr tablet TAKE 2 TABLETS (1,000 MG TOTAL) BY MOUTH 2 (TWO) TIMES A DAY BEFORE BREAKFAST AND DINNER. 360 tablet 1 mirabegron (Myrbetriq) 25 mg 24 hr tablet TAKE 1 TABLET (25 MG TOTAL) BY MOUTH DAILY. 90 tablet 0 Tradjenta 5 mg tablet TAKE 1 TABLET (5 MG TOTAL) BY MOUTH DAILY. 90 tablet 2 triamcinolone (KENALOG) 0.1 % cream APPLY TO AFFECTED AREA TWICE A DAY valsartan (DIOVAN) 80 mg tablet Take 1 tablet (80 mg total) by mouth daily. empagliflozin (Jardiance) 10 mg tablet Take 1 tablet (10 mg total) by mouth 1 (one) time each day in the morning. (Patient not taking: Reported on 08/11/2024) 30 tablet 0 No current facility-administered medications for this visit. ALLERGIES: No Known Allergies PAST MEDICAL HISTORY: Past Medical History: Diagnosis Date Alcoholism ([facility]) DX:Alcoholism ([facility]) Anxiety DX:Anxiety Cataract DX:Cataract Deficiency of other specified B group vitamins (CODE) DX:Deficiency of other specified B group vitamins (CODE) Depression DX:Depression Diabetes mellitus ([facility]) DX:Diabetes mellitus ([facility]) Diabetic neuropathy associated with type 2 diabetes mellitus ([facility]) DX:Diabetic neuropathy associated with type 2 diabetes mellitus ([facility]) Hyperlipidemia DX:Hyperlipidemia Hypertension DX:Hypertension Vitamin D deficiency DX:Vitamin D deficiency PAST SURGICAL HISTORY: Past Surgical History: Procedure Laterality Date CATARACT EXTRACTION W/ INTRAOCULAR LENS IMPLANT Right 11/14/2020 PROCEDURE:CATARACT EXTRACTION W/ INTRAOCULAR LENS IMPLANT;COMMENT:Procedure: RIGHT -EXTRACTION CATARACT WITH IOL IMPLANT; Surgeon: Gerald Torres MD; Location: [facility]; Service: Ophthalmology; Laterality: Right; CATARACT EXTRACTION W/ INTRAOCULAR LENS IMPLANT Left 11/22/2020 PROCEDURE:CATARACT EXTRACTION W/ INTRAOCULAR LENS IMPLANT;COMMENT:Procedure: LEFT EXTRACTION CATARACT WITH IOL IMPLANT; Surgeon: Gerald Torres MD; Location: [facility]; Service: Ophthalmology; Laterality: Left; COLONOSCOPY N/A 09/10/2021 PROCEDURE:COLONOSCOPY;COMMENT:Procedure: COLONOSCOPY; Surgeon: Lucy Szymanski MD; Location: [facility]; Service: Gastroenterology; Laterality: N/A; HIP SURGERY Left PROCEDURE:HIP SURGERY JOINT REPLACEMENT Left PROCEDURE:JOINT REPLACEMENT;COMMENT:HIP TOTAL HIP ARTHROPLASTY Left PROCEDURE:TOTAL HIP ARTHROPLASTY TUBAL LIGATION PROCEDURE:TUBAL LIGATION FAMILY HISTORY: Family History Problem Relation Name Age of Onset Hypertension Mother Hyperlipidemia Mother Heart disease Mother No Known Problems Father Hypertension Sister x 2 sisters Hypertension Brother Cancer Maternal Grandmother No Known Problems Maternal Grandfather No Known Problems Paternal Grandmother No Known Problems Paternal Grandfather Cervical cancer Neg Hx Uterine cancer Neg Hx Colon cancer Neg Hx Breast cancer Neg Hx SOCIAL HISTORY: Social History Tobacco Use Smoking status: Never Smokeless tobacco: Never Vaping Use Vaping status: Never Used Substance Use Topics Alcohol use: Yes Drug use: No ROS: Review of Systems HENT: Denies transient blindness Neurological: Negative for dizziness, tremors, syncope, facial asymmetry, speech difficulty, weakness, light-headedness and numbness. All other systems reviewed and are negative. OBJECTIVE: Vital Signs Visit Vitals BP 116/66 (BP Location: Left arm, Patient Position: Sitting, BP Cuff Size: Large adult) Pulse 101 Temp 36.3 ??C (97.3 ??F) (Temporal) Ht 1.689 m (66.5 ) Wt 78.9 kg (174 lb) SpO2 96% BMI 27.66 kg/m?? OB Status Postmenopausal Smoking Status Never BSA 1.9 m?? Body mass index is 27.66 kg/m??. PHYSICAL EXAM: Physical Exam Constitutional: Appearance: Normal appearance. HENT: Right Ear: Tympanic membrane, ear canal and external ear normal. Left Ear: Tympanic membrane, ear canal and external ear normal. Cardiovascular: Rate and Rhythm: Normal rate and regular rhythm. Pulses: Normal pulses. Carotid pulses are on the left side with bruit. Heart sounds: Normal heart sounds. Pulmonary: Effort: Pulmonary effort is normal. Breath sounds: Normal breath sounds. Abdominal: General: Bowel sounds are normal. There is no distension. Tenderness: There is no abdominal tenderness. Musculoskeletal: Right lower leg: No edema. Left lower leg: No edema. Neurological: Mental Status: She is alert. ASSESSMENT/PLAN: Annual physical exam Patient is a 69 y.o. female with pmhx T2DM, HLD, hx of alcohol use disorder, CKD who presents for annual physical. Vital signs and physical exam wnl Discussed screenings, Her last mammogram, conducted in 2023, was normal, indicating the need for a subsequent mammogram. Her bone density test, performed in 05/2022, suggests that a repeat test is due. She is current with her influenza and COVID-19 vaccinations, having received the latter in 03/2024 at [facility]. She has not yet received the RSV vaccine. She was administered the shingles vaccine and received the pneumonia vaccine in 2021. Will order lipid panel Hyperlipidemia Her triglyceride levels were significantly elevated during the last assessment ordered by shae LANCASTER. A lipid panel will be ordered, and she is advised to fast prior to the test. Currently on liptor 20 mg qdaily Diabetes mellitus ([facility]) Her diabetes is currently under control. Follows with endocrinology Localized swelling of lower extremity She reports improvement in leg swelling with the use of compression stockings and elevating her feet. She is currently taking Lasix 20 mg every other day, which helps manage the swelling. She is advised to continue these measures and avoid increasing the frequency of Lasix due to potential kidney side effects. Left carotid bruit Asymptomatic, incidental finding during a wellness visit at home. Will order US of carotid arteries Orders Orders Placed This Encounter Procedures MG Mammo Digital Screening bilat Standing Status: Future Standing Expiration Date: 08/11/2025 Order Specific Question: In what REGION should this be scheduled? Answer: [facility] [place] [[id number]] Lipid panel Standing Status: Future Standing Expiration Date: 08/11/2025 Estelita Tee MD [address] [place] [address], [address] [place] [address] documented in this encounter Plan of Treatment Upcoming Encounters Date Type Department Care Team (Late st Contact Info) Description 11/08/2024 11:15 AM EDT [facility] - [address] [place] [address] Georgina Gilbert PA [address] [place] [address] 02/08/2025 11:00 AM EDT Office Visit Internal Medicine - [place] [place] [id number] Tenisha Cruz MD [address] [place] [address] Scheduled Orders Name Type Priority Associated Diagnoses Order Schedule MG Mammo Digital Screening bilat Imaging Routine Encounter for screening mammogram for malignant neoplasm of breast 1 Occurrences starting 08/11/2024 until 08/11/2025 Lipid panel Lab Routine Left carotid bruit 1 Occurrences starting 08/11/2024 until 08/11/2025 Vascular US duplex carotid bilateral Vascular Ultrasound Routine Left carotid bruit Expected: 08/18/2024 (Approximate), Expires: 08/11/2025 documented as of this encounter Visit Diagnoses Diagnosis Medicare annual wellness visit, subsequent- Primary Encounter for screening mammogram for malignant neoplasm of breast Mixed hyperlipidemia Left carotid bruit Annual physical exam Routine general medical examination at a [facility] care facility Type 2 diabetes mellitus without complication, without long-term current use of insulin ([facility]) Localized swelling of lower extremity documented in this encounter Additional Health Concerns Assessment Noted Time PHQ-9 Depression Total Score: 0 08/11/19 25 11:04 AM EST documented as of this encounter Care Teams Electronic Prepress System Operator Relationship Specialty Start Date End Date Tenisha Cruz MD [address] [place] [address] PCP - General Internal Medicine 02/20/22 documented as of this encounter
--- OUTSIDE RECORDS SUMMARY | 2024-08-25 16:56 | XMS_ITS | Clinical Summary ---
Author Organization [facility] Address [address] [place] [address] Care Team Providers Care Pipe Line Inspector Name Role Phone Tenisha Cruz MD Primary Care Provider Unav ailable Allergies No known active allergies Medications Medication Sig Dispensed Refills Start Date End Date Status aspirin 81 MG tablet Take 1 tablet (81 mg total) by mouth daily. 0 Active Multiple Vitamins-Minerals (STROVITE ONE) TABS Take 1 tablet by mouth daily. 3 05/13/2017 Active Continuous Blood Gluc Lead Java J2Ee Developer (FreeStyle Jessica 2 [place]) DEVIIndications:Diab etic polyneuropathy associated with type 2 diabetes mellitus (HCC) Inject 1 Device under the skin 2 (two) times a day before breakfast and dinner. 1 each 0 11/19/2021 Active Additional Information Patient not taking.Reason: Other, Reported on 04/14/2024 Continuous Blood Gluc Sensor (FreeStyle Jessica 2 Sensor) MISCIndications:Diab etes mellitus type 2 in obese 1 each by Does not apply route every 14 (fourteen) days. 2 each 11 05/27/2022 Active Additional Information Patient not taking.Reason: Other, Reported on 11/14/2022 folic acid (FOLVITE) tablet 1 mg TAKE 1 TABLET EVERY DAY 90 tablet 1 06/19/2023 Active triamcinolone (KENALOG) 0.1 % creamIndications:Num mular dermatitis APPLY TO AFFECTED AREA TWICE A DAY 30 g 0 06/20/2023 Active valsartan (DIOVAN) tablet 80 mg Take 1 tablet (80 mg total) by mouth daily. 90 tablet 1 07/11/2023 Active fluticasone (FLONASE) 50 MCG/ACT nasal spray SPRAY/APPLY 1 SPRAY IN EACH NOSTRIL DAILY 48 mL 1 08/28/2023 Active Tradjenta 5 MG tabletIndications:Ty pe 2 diabetes mellitus with obesity (HCC) TAKE 1 TABLET (5 MG TOTAL) BY MOUTH DAILY. 90 tablet 2 09/30/2023 Active cetirizine (ZyrTEC) 10 MG tablet TAKE 1 TABLET BY MOUTH EVERY DAY 90 tablet 1 11/27/2023 Active amLODIPine (NORVASC) tablet 10 mg TAKE 1 TABLET BY MOUTH EVERY DAY 90 tablet 1 11/27/2023 Active Accu-Chek Connie Plus test stripIndications:Typ e 2 diabetes mellitus with obesity (HCC) USE TO TEST BLOOD SUGAR DAILY 100 strip 6 12/24/2023 Active atorvastatin (LIPITOR) tablet 20 mgIndications:Hyperc holesterolemia TAKE 1 TABLET BY MOUTH EVERY DAY 90 tablet 1 02/16/2024 Active Invokana 100 MG tabletIndications:Di abetic polyneuropathy associated with type 2 diabetes mellitus (HCC) TAKE 1 TABLET BY MOUTH EVERY DAY 90 tablet 0 02/16/2024 Active furosemide (LASIX) 20 MG tablet TAKE 1 TABLET BY MOUTH EVERY OTHER DAY 45 tablet 1 03/15/2024 Active Myrbetriq 25 MG TB24 24 hr tablet TAKE 1 TABLET (25 MG TOTAL) BY MOUTH DAILY. 90 tablet 1 03/22/2024 Active gabapentin (NEURONTIN) 300 MG capsuleIndications:D iabetic polyneuropathy associated with type 2 diabetes mellitus (HCC) TAKE 2 CAPSULES BY MOUTH 3 TIMES A DAY 180 capsule 0 04/21/2024 Active Active Problems Problem Noted Date Diagnosed Date Localized swelling of lower extremity 04/23/2024 Last Assessment & Plan: Patient is a 69-year-old female with past medical history of type 2 diabetes mellitus, chronic kidney disease who presents with acute complaint of lower extremity swelling. She was recommended to follow-up with PCP for swelling. Patient reports she has noticed her feet swelling for the last couple months. Denies previous episodes. Per chart review, appears her leg swelling is chronic and in which is why she is on Lasix 20 mg every other day. Her boyfriend via phone confirms she is taking Lasix 20 mg every other day. She had been previously recommended to use compression stockings as well which she is not doing. Advised patient to use compression stockings every day and for now we will continue on Lasix 20 mg every other day. She is also on amlodipine 10 mg daily which can cause increased swelling but patient mentions she has been on this medication for a long time. Will order echo as her last one was in 2021 and she does have risk factors for heart disease. Follow-up in 2 weeks after attempting conservative management. Overactive bladder 11/13/2023 Urinary urgency 08/01/2023 Diabetes mellitus 09/24/2022 Depressive disorder 09/24/2022 Alcoholism 09/24/2022 Post-nasal drip 06/26/2022 Hyponatremia 06/26/2022 Weight gain 06/26/2022 Tachycardia 06/26/2022 Type 2 diabetes mellitus with hyperglycemia 12/2021 Hypercalcemia 06/05/2022 Age-related cataract of both eyes 11/06/2020 Nuclear senile cataract of both eyes 11/06/2020 Anxiety 05/13/2017 Type 2 diabetes mellitus with obesity 05/13/2017 Laryngopharyngeal reflux 05/13/2017 Hypertension Hyperlipidemia Diabetic neuropathy associat ed with type 2 diabetes mellitus Vitamin D deficiency Deficiency of other specified B group vitamins ( CODE) Immunizations Name Administration Dates Next Due Covid-19 (Moderna 12+) Fall 2022 0.5mL 03/31/2023 Covid-19 (Pfizer) Dilution Required 06/12/2021,0 10/12/2020,09/21/2020 Influenza Quad (Afluria/Fluz one) 0.5mL >=6mon Vial (SD-IIV4) 03/26/2018 Influenza Quad (Fluad) 0.5 m L >65Yrs (AIIV4) 03/07/2023 Influenza Quad (Fluarix/Fluzone/FluLaval) 0.5mL (SD-IIV4) 02/22/2022,04/02/2021,03/26/2018,2015 Influenza Quad (Flucelvax) 0 .5mL >6mon (ccIIV4) 03/17/2020,04/05/2019,03/31/2017,2014 Pneumococcal Conjugate PCV13 04/19/2022 Shingrix Vaccine (Zoster Recombinant) 05/30/2022 ,02/01/2022 Tdap 10/27/2017 Zostavax (Zoster Live) 05/30/2022 Family History Medical History Relation Name Comments Hypertension Brother No Sig Med Hx Father No Sig Med Hx Maternal Grandfather Cancer Maternal Grandmother Heart disease Mother Hyperlipidemia Mother Hypertension Mother No Sig Med Hx Paternal Grandfather No Sig Med Hx Paternal Grandmother Hypertension Sister x 2 sisters Breast cancer Neg Hx Cervical cancer Neg Hx Colon cancer Neg Hx Uterine cancer Neg Hx Relation Name Status Comments Brother Alive Father Maternal Grandfather Maternal Grandmother Mother Alive Paternal Grandfather Paternal Grandmother Sister Alive Social History Tobacco Use Types Packs/Day Years Used Date Smoking Tobacco: Never Smokeless Tobacco: Never Tobacco Cessation:Counseling Given: Not Answered Alcohol Use Standard Drinks/Week Comments Yes 0 (1 standard drink = 0.6 oz pur e alcohol) occasioanal Sex and Gender Information Value Date Recorded Sex Assigned at Female 12/03/2018 9:18 AM EDT Gender Identity Female 07/21/2023 2:54 PM EST Sexual Orientation Not on file Job Start Date Occupation Industry Not on file Not on file Not on file Last Filed Vital Signs Vital Sign Reading Time Taken Comments Blood Pressure 125/65 04/23/2024 11:29 AM EDT Pulse 98 04/23/2024 11:29 AM EDT Temperature 36.3 ??C (97.3 ??F) 04/23/2024 11:29 AM E DT Respiratory Rate 16 09/10/2021 11:10 AM EDT Oxygen Saturation 99% 04/23/2024 11:29 AM EDT Inhaled Oxygen Concentration - - Weight 79.4 kg (175 lb) 04/23/2024 11:29 AM EDT Height 167.6 cm (5' 6 ) 04/23/2024 11:29 AM EDT Body Mass Index 28.25 04/23/2024 11:29 AM EDT Plan of Treatment Health Maintenance Due Date Last Done Comments Hepatitis C Screening 1955 Diabetes: Foot Exam 06/04/2022 06/04/2021, 7 Pneumococcal Vaccine (2 of 2 - PPSV23 or PCV20) 06/14/2022 04/19/2022 Diabetes: Microalbumin Test 02/27/2024 08/3 , 02/26/2023, 03/07/2022, Additional history exists Osteoporosis Screening (DEXA Scan) 06/14/2024 06/14/2022 Depression Screening 08/01/2024 08/01/2023, 08/01/2023, 08/01/2023, Additional history exists Fall Risk Assessment 08/01/2024 08/01/2023, 08/01/2023, 08/01/2023, Additional history exists Preventative Health Evaluation 08/01/2024 08/01/2023, 08/01/2023, 08/01/2023, Additional history exists Hemoglobin A1C Due 08/25/2024 02/23/2024, 0 08/01/2023, 02/26/2023, Additional history exists Diabetes: Eye Exam (No Retinopathy) 02/04/2025 02/04/2023, 04/30/2021, 07/01/2017 BMI Counseling 04/14/2025 04/14/2024, 02/0 07/2023, 07/30/2023, Additional history exists Breast Cancer Screening (Mammogram) 08/06/2025 08/06/2023, 06/14/2022, 06/12/2021, Additional history exists DTap / Tdap / Td (2 - Td or Tdap) 10/28/2027 10/27/2017 Colon Cancer Screening (Colonoscopy) 09/11/2031 09/10/2021, 09/06/2009 (Pt Reported - Need documentation), 08/09/2008 RSV Adult > 60+ Yrs or (1 - 1-dose 75+ series) 2032 Shingrix-Zoster Vaccine Completed 05/30/2022, 02/01 COVID-19 Vaccine Completed 03/05/2024, 07/2022, 06/12/2021, Additional history exists Influenza Vaccine Completed 03/05/2024, , 02/22/2022, Additional history exists Hepatitis B Vaccines Aged Out No long er eligible based on patient's age to complete this topic RSV Ped < 20 months Aged Out No longe r eligible based on patient's age to complete this topic Goals Goal Patient Goal Type Associated Problems Recent Progress Patient-Stated? Author Diabetes: Diet: Diet No Monica, Romana??, RD Note: Try to have up to a fist size amount of carbohydrates in each meal (about 1 cup) - MET Don't skip meals 06/12/22 Add protein to breakfast when having cereal (ie peanut butter in oatmeal, nuts in cereal) Consider trying unsweetened almond milk in coffee and cereal Consider doing exercise after breakfast to help bring down sugars Continue with staying hydrated with water or calorie free drinks Diabetes: Check Blood Sugars 1-2 Times Daily Wellness Coaching No Monica, Romana??, RD Note: Check blood sugar doing a fingerstick 2 hours after a meal once no longer using sensor on arm. Target blood sugar 2 hours after meals and at bedtime = less than 180 Target blood sugar before all meals = 80-140 Medical Devices Implanted Type Area Leverman Device Identifier Shelf Expiration Date Model / Serial / Lot Lens Iol Tecnis Tri-Fix Protec [place] Acrylic +21.0 Diopter - [id number] - [id number] Implanted:Qty: 1 on 11/14/2020 by Gerald Torres MD at [facility] Location Lens Right: Eye [employer] 08/26/2024 [id number] / [id number] / Lens Tecnis Simplicity Tecnis Protec Tri-Fix 13mm +2.5 - [id number] - [id number] Implanted:Qty: 1 on 11/22/2020 by Gerald Torres MD at [facility] Location Left: Eye [employer] 07/16/2023 [id number] / [id number] / Additional Health Concerns Infection Onset Date Last Indicated COVID-19 Confirmed 07/27/2021 07/30/2021 Advance Directives For more information, please contact: [phone] Documents on File Type Date Recorded Patient Needleworker Expl anation Advance Directive and Living Will 12/03/2018 8:46 AM Care Teams Pipe Line Inspector Relationship Specialty Start Date End Date Tenisha Cruz MD PCP - General Internal Medicine 02/20/22
--- OUTSIDE RECORDS SUMMARY | 2024-08-25 16:56 | XMS_ITS | Encounter Summary ---
Author Organization [facility] [place] [address] Care Team Providers Care Sustainability Analyst Name Role Phone Tenisha Cruz MD Primary Care Provider [phone] Reason for Referral * Consultation (Routine) - Authorized Specialty Diagnoses / Procedures Referred By Timbo cox Referred To Contact Credit Reporter / Endocrinology Diagnoses Type 2 diabetes mellitus with hyperglycemia, without long-term current use of insulin ([facility]) Procedures [place] VISIT OFFICE OUTPATIENT ESTABLISHED MODERATE LEVEL Georgina Gilbert PA [address] [place] [address] Phone: tel: fax: [facility] [address] [address] Phone: tel: fax: Referral ID Status Reason Start Date Expiration Date Visits Requested Visits Authorized [id number] Authorized Specialty Services Required 08/02/2024 08/02/2025 1 1 Reason for Visit * Reason Comments Follow-up Type 2 DM Encounter Details Date Type Department Care Team (Latest Contact Info) Description 08/02/2024 11:15 AM EST Office Visit [facility] [address] [id number] Georgina Gilbert PA [address] [place] [address] Type 2 diabetes mellitus with hyperglycemia, without long-term current use of insulin ([facility]) (Primary Dx); Hypertension, unspecified type; Mixed hyperlipidemia Social History Tobacco Use Types Packs/Day Years [...] Sign Reading Time Taken Comments Blood Pressure 142/81 08/02/2024 11:42 AM EST Pulse 101 08/02/2024 11:42 AM EST Temperature - - Respiratory Rate - - Oxygen Saturation 97% 08/02/2024 11:42 AM EST Inhaled Oxygen Concentration - - Weight 77.1 kg (170 lb) 08/02/2024 11:42 AM EST Height 167.6 cm (5' 6 ) 08/02/2024 11:42 AM EST Body Mass Index 27.44 08/02/2024 11:42 AM EST documented in this encounter Progress Notes * ANISHA Overton - 08/02/2024 11:15 AM EST If you have any concerns for side effects, low blood sugars or high blood sugars, please give us a call at [phone]. For general concerns, refills, or appointments, please call [phone] or send message on [employer]. Please bring glucometer to EVERY appointment here . Check sugars twice a day Stay hydrated. It is recommended to have no more than 1 alcoholic beverage a day. Labs at [facility] Reviewed Targets Fasting blood sugar (first thing in the morning before breakfast): 90-130 2 hours after meals: 140-180 * ANISHA Overton - 08/02/2024 11:15 AM EST Reason for Visit: Chief Complaint Patient presents with Follow-up Type 2 DM F/U Patient Visit History of present Illness: 69 y.o. female Here for f/u patient visit for diabetes type 2 with PMH of alcoholism, anxiety, depression, HTN, HLD, reflux, vitamin D deficiency Diabetes diagnosed around age 52 she thinks on routine labs. Predm before that. Started treatment with metformin Family hx significant for no one else in family with DM. Today, She feels like diet has been pretty good lately. Last night had baked chicken with potato and corn.She reports eating more frequently in morning and then has bigger meal around 2:00 and it keeps herfor most of afternoon. Looking into Exacter program. Not currently exercising. Reports that she drinks wine daily, will fill up a wine glass. Current diabetes regimen Metformin ER 1000mg twice a day Invokana 199mg daily Tradjenta 5mg daily Side effects No GI upset, stomach pain, dysuria, dizziness, UTI Previous medications tried Glipizide - hypoglycemia Invokana - insurance change Self monitoring of blood glucose Checks once a day. Does not have glucometer with her today Hypoglycemia No lows recently Had a low once and drank juice Regarding complications: Most recent dilated eye exam reports was within past year. No changes in vision recently No Numbness and tingling of feet bilaterally Last UACR ? January 2023 No known Hx of CAD or CVA + Hypertension + Hyperlipidemia Review of Systems: Review of Systems Past Medical History: Past Medical History: Diagnosis Date Alcoholism ([facility]) DX:Alcoholism (HCC) Anxiety DX:Anxiety Cataract DX:Cataract Deficiency of other specified B group vitamins (CODE) DX:Deficiency of other specified B group vitamins (CODE) Depression DX:Depression Diabetes mellitus ([facility]) DX:Diabetes mellitus (HCC) Diabetic neuropathy associated with type 2 diabetes mellitus (CMS/HCC) DX:Diabetic neuropathy associated with type 2 diabetes mellitus (HCC) Hyperlipidemia DX:Hyperlipidemia Hypertension DX:Hypertension Vitamin D deficiency DX:Vitamin D deficiency Past Surgical History: Past Surgical History: Procedure Laterality Date CATARACT EXTRACTION W/ INTRAOCULAR LENS IMPLANT Right 11/14/2020 PROCEDURE:CATARACT EXTRACTION W/ INTRAOCULAR LENS IMPLANT;COMMENT:Procedure: RIGHT -EXTRACTION CATARACT WITH IOL IMPLANT; Surgeon: Gerald Torres MD; Location: [facility]; Service: Ophthalmology; Laterality: Right; CATARACT EXTRACTION W/ INTRAOCULAR LENS IMPLANT Left 11/22/2020 PROCEDURE:CATARACT EXTRACTION W/ INTRAOCULAR LENS IMPLANT;COMMENT:Procedure: LEFT EXTRACTION CATARACT WITH IOL IMPLANT; Surgeon: Gerald Torres MD; Location: [facility]; Service: Ophthalmology; Laterality: Left; COLONOSCOPY N/A 09/10/2021 PROCEDURE:COLONOSCOPY;COMMENT:Procedure: COLONOSCOPY; Surgeon: Lucy Szymanski MD; Location: [facility]; Service: Gastroenterology; Laterality: N/A; HIP SURGERY Left PROCEDURE:HIP SURGERY JOINT REPLACEMENT Left PROCEDURE:JOINT REPLACEMENT;COMMENT:HIP TOTAL HIP ARTHROPLASTY Left PROCEDURE:TOTAL HIP ARTHROPLASTY TUBAL LIGATION PROCEDURE:TUBAL LIGATION Social History: Social History Socioeconomic History Marital status: Spouse name: Not on file Number of children: Not on file Years of education: 14 Highest education level: Not on file Occupational History Not on file Tobacco Use Smoking status: Never Smokeless tobacco: Never Vaping Use Vaping status: Never Used Substance and Sexual Activity Alcohol use: Yes Drug use: No Sexual activity: Not on file Comment: has not been sexually active x 13 years Other Topics Concern Not on file Social History Narrative Date:[birth year] Born in [place],came to [place] at age 11, is a [place] citizen, was by in 1991 when was in [facility]. Lives with: foreign trade teacher Raffaele x 1 year, but they have been together x 13 years.[facility] Home: single family home Gun s: none Safe: feels safe in home, in neighborhood, in relationship Transportation: has car, license; wears seatbelt Children: 2 children 2 boys, first grandchild on the way in September 2017 Speaks greenlandic Moved to [place] about 1 year ago from [place] to move in with Raffaele. 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 Family History: Family History Problem Relation Name Age of Onset Hypertension Mother Hyperlipidemia Mother Heart disease Mother No Known Problems Father Hypertension Sister x 2 sisters Hypertension Brother Cancer Maternal Grandmother No Known Problems Maternal Grandfather No Known Problems Paternal Grandmother No Known Problems Paternal Grandfather Cervical cancer Neg Hx Uterine cancer Neg Hx Colon cancer Neg Hx Breast cancer Neg Hx Home Medications: Current Outpatient Medications Medication Sig Dispense Refill [...] (one) time each day. 90 tablet 0 empagliflozin (Jardiance) 10 mg tablet Take 1 tablet (10 mg total) by mouth 1 (one) time each day in the morning. 30 tablet 0 fluticasone propionate (FLONASE) 50 mcg/actuation [...] tablet (80 mg total) by mouth daily. No current facility-administered medications for this visit. Allergies: No Known Allergies Clinical Data: No results found for: TSH Lab Results Component Value Date HGBA1C 7.3 (A) 08/01/2023 No results found for: GLU , GLUCOSE , BUN , CREATININE , NA , K , CL , TCO2 , CO2 , AGAP , ANIONGAP , CALCIUM Lab Results Component Value Date CHOL 121 02/26/2023 HDL 41 02/26/2023 TRIG 205 (A) 02/26/2023 Objective: Vitals: 08/02/24 1142 BP: (!) 142/81 BP Location: Right arm Patient Position: Sitting BP Cuff Size: Adult Pulse: 101 SpO2: 97% Weight: 77.1 kg (170 lb) Height: 1.676 m (66 ) Body mass index is 27.44 kg/m??. Physical Exam: Physical Exam Constitutional: General: She is not in acute distress. Appearance: Normal appearance. Eyes: Extraocular Movements: Extraocular movements intact. Neck: Comments: No thyromegaly or thyroid nodules appreciated Cardiovascular: Rate and Rhythm: Normal rate and regular rhythm. Heart sounds: Normal heart sounds. No murmur heard. Pulmonary: Effort: Pulmonary effort is normal. No respiratory distress. Breath sounds: Normal breath sounds. No wheezing. Abdominal: General: There is no distension. Palpations: Abdomen is soft. Tenderness: There is no abdominal tenderness. There is no guarding. Musculoskeletal: General: Normal range of motion. Right lower leg: No edema. Left lower leg: No edema. Skin: General: Skin is warm and dry. Neurological: General: No focal deficit present. Mental Status: She is alert and oriented to person, place, and time. Psychiatric: Mood and Affect: Mood normal. Behavior: Behavior normal. Foot exam: Skin of bilateral feet is dry and intact. There are no ulcers or lesions. Toenails are not thickened. Monofilament sensation intact to 2/5 locations tested on right foot and diminished all locations on left foot.. DP pulses are 2+ Assessment and Plan: Here for f/u patient visit for type 2 diabetes mellitus 1.) Type 2 Diabetes Mellitus A1C: 7.3 in January, goal < 7 No sugars to review today, no recent labs. Will order and asked patient to have done. Reviewed withpatient importance of bring glucometer to every appointment. Also encourage patient check sugars atleast twice a day so we can see how sugars look after she eats. She has been having 1 feels glass of wine every day, likely more than 1 standard drink. Chart also with history of alcoholism. Reviewed importance of limiting to 1 standard drinks daily hydration when drinking and eating when drinking. Reviewed risk of pancreatitis and diabetic ketoacidosis with excess alcohol intake and her medications. Reviewed patient that as she is vomiting her risk of dehydration for what ever reason, to skip Invokana/Jardiance the day She is currently taking Invokana but insurance is no longer covering, she will switch to Jardiance.Will have pro CGM placed and will reassess her medications. With her ETOH use, will continue current meds with caution Plan Check sugars twice a day Continue metformin and Tradjenta. She will continue Invokana 100 mg daily and then plan to transition to Jardiance 10 mg daily due to insurance Blood glucose targets: Fasting blood sugar (first thing in the morning before breakfast) 90-130 2 hours after meals: 140-180 reviewed risks of uncontrolled diabetes including neuropathy Discussed the symptoms of hypoglycemia, how to treat using the rule of 15s and the importance of following up on hypoglycemia until normoglycemia No known Retinopathy- UTD on exam + neuropathy - Discussed the importance of foot care and nightly self exams No known microalbuminuria, will check now 2.) Hypertension Blood pressure above goal today. No changes to regimen today Continue valsartan, amlodipine and Lasix every other day Less than 130/80 3.) Hyperlipidemia She melania on atorvastatin. Reviewed importance of cutting back on alcohol intake with her medications. LDL goal less than 70 She has a history of low vitamin D, not taking supplements. Intact PTH was previously at 44 and calcium was in normal limits in January. Hyponatremia not addressed today. Per chart review, she has had history of normal TSH and a.m. cortisol. She has seen nephrology in the past No longer taking B12 supplement due to vitamin D level being more than 4000 in January 2024. Type 2 diabetes mellitus with hyperglycemia, without long-term current use of insulin ([facility]) (Primary) - Ambulatory referral to Diabetic Education; Future - Microalbumin creatinine urine ratio; Future - Comprehensive metabolic panel; Future - Hemoglobin A1c; Future Hypertension, unspecified type Mixed hyperlipidemia Follow-up appointment: Follow up in about 3 months (around 10/30/2024). Georgina Puff, PA-[facility] 02/03/25 This note was completed using dictation with the aid of [employer] voice recognition software. Please excuse knife grinder errors. documented in this encounter Plan of Treatment Upcoming Encounters Date Type Department Care Team (Late st Contact Info) Description 11/08/2024 11:15 AM EDT [facility] [address] [place] [phone] Georgina Gilbert PA [address] [place] [id number] 02/08/2025 11:00 AM EDT Office Visit Internal Medicine - [address] [place] [id number] Tenisha Cruz MD [address] [place] [address] Scheduled Referrals Name Type Priority Associated Diagnoses Order Schedule Ambulatory referral to Diabetic Education Outpatient Referral Routine Type 2 diabetes mellitus with hyperglycemia, without long-term current use of insulin ([facility]) 1 Occurrences starting 08/02/2024 until 08/02/2025 documented as of this encounter Results * (ABNORMAL) Hemoglobin A1c (08/10/2024 10:11 AM EST) Hemoglobin A1C 7.3(H) <5.7 % LAB CHEMISTRY METHOD 08/10/2024 3:36 PM EST [facility] Mean Bld Glu Estim. 163 mg/dL LAB CHEMISTRY METHOD 08/10/2024 3:36 PM EST [facility] Blood Venous blood specimen / Unknown Venipuncture / Unknown 08/10/2024 10:11 AM EST 08/10/2024 10:11 AM EST Narrative [facility] - 08/10/2024 3:36 PM EST ADA Guidelines: ?? Increased risk Diabetes Mellitus A1C 5.7 - 6.4% and Fasting Blood Glucose 100 - 125 mg/dl Diabetes Mellitus: A1C >6.5% and Fasting Blood Glucose >125 mg/dl us Georgina LANCASTER LAB BLOOD ORDERABLES Final Resu lt [facility] [address] [place] [address], [place] [phone] * (ABNORMAL) Comprehensive metabolic panel (08/10/2024 10:11 AM EST) Sodium 136 135 - 145 mmol/L LAB CHEMISTRY METHOD 08/10/2024 10:56 AM [facility] Potassium 4.3 3.5 - 5.1 mmol/L LAB CHEMISTRY METHOD 08/10/2024 10:56 AM [facility] Chloride 96(L) 98 - 107 mmol/L LAB CHEMISTRY METHOD 08/10/2024 10:56 AM [facility] CO2 30 24 - 32 mmol/L LAB CHEMISTRY METHOD 08/10/2024 10:56 AM [facility] Anion Gap 10 5 - 14 LAB CHEMISTRY METHOD 08/10/2024 10:56 AM [facility] Glucose 169(H) 70 - 99 mg/dL LAB CHEMISTRY METHOD 08/10/2024 10:56 AM [facility] BUN 20(H) 7 - 17 mg/dL LAB CHEMISTRY METHOD 08/10/2024 10:56 AM [facility] Creatinine 1.01(H) 0.50 - 1.00 mg/dL LAB CHEMISTRY METHOD 08/10/2024 10:56 AM [facility] eGFR 61 >=60 mL/min/1. 73m2 LAB CHEMISTRY METHOD 08/10/2024 10:56 AM [facility] Comment:Calculation based on the??Chronic Kidney Disease Epidemiology Collaboration (CKD-EPI) equation refit??without adjustment for race. BUN/Creatinine Ratio 19.8 12.0 - 20.0 LAB CHEMISTRY METHOD 08/10/2024 10:56 AM [facility] Calcium 10.3(H) 8.4 - 10.2 mg/dL LAB CHEMISTRY METHOD 08/10/2024 10:56 AM [facility] AST (SGOT) 22 5 - 40 unit/L LAB CHEMISTRY METHOD 08/10/2024 10:56 AM [facility] ALT (SGPT) 26 7 - 52 unit/L LAB CHEMISTRY METHOD 08/10/2024 10:56 AM [facility] Alkaline Phosphatase 80 34 - 104 unit/L LAB CHEMISTRY METHOD 08/10/2024 10:56 AM [facility] Total Protein 8.2 6.4 - 8.5 g/dL LAB CHEMISTRY METHOD 08/10/2024 10:56 AM [facility] Albumin 5.0 3.5 - 5.0 g/dL LAB CHEMISTRY METHOD 08/10/2024 10:56 AM [facility] Total Bilirubin 0.6 0.3 - 1.0 mg/dL LAB CHEMISTRY METHOD 08/10/2024 10:56 AM [facility] Blood Venous blood specimen / Unknown Venipuncture / Unknown 08/10/2024 10:11 AM EST 08/10/2024 10:11 AM EST us Georgina LANCASTER LAB BLOOD ORDERABLES Final Resu lt [facility] [address] [place] [address], [place] [phone] * Microalbumin creatinine urine ratio (08/10/2024 10:11 AM EST) Creatinine, Urine 46.4 mg/dL LAB CHEMISTRY METHOD 08/10/2024 6:18 PM EST [facility] Comment:No established refer ence range. Microalb, Ur <7.0 mg/L LAB CHEMISTRY METHOD 08/10/2024 6:18 PM EST [facility] Comment:No established refer ence range. Microalb/Creat Ratio <15 <30 mg/g creat LAB CHEMISTRY METHOD 08/10/2024 6:18 PM EST [facility] Comment:Concentrations outsi de detection limits, unable to calculate ratio. Urine Urine specimen obtained by clean catch procedure / Unknown Non-blood Collection / Unknown 08/10/2024 10:11 AM EST 08/10/2024 10:11 AM EST Georgina LANCASTER LAB URINE ORDERABLES Final Resu lt [facility] [address] [place] [address], documented in this encounter Visit Diagnoses Diagnosis Type 2 diabetes mellitus with hyperglycemia, without long-term current use of insulin ([facility])- Primary Hypertension, unspecified type Mixed hyperlipidemia documented in this encounter Historical Medications * This list may reflect changes made after this encounter. Medication Sig Dispense Quantity Refills Last Filled Start D ate End Date canagliflozin (Invokana) 300 mg tablet 06/02/2021 08/20/2024 added in this encounter Care Teams Sustainability Analyst Relationship Specialty Start Date End Date Tenisha Cruz MD [address] [place] [id number] PCP - General Internal Medicine 02/20/22 documented as of this encounter
--- OUTSIDE RECORDS SUMMARY | 2024-08-25 16:56 | XMS_ITS ---
Author Name [facility] Organization Unknown Results Test Name/Text Value Interpretation Date Range Source Microalbumin Ur-mCnc 7mg/L Normal [id number] [facility] Microalbumin/Creat Ur 15mg/gcreat Normal [id number] - 30 [facility] Creat Ur-mCnc 46.4mg/dL Normal [id number] [facility] Est. average glucose Bld gHb Est-mCnc 163mg/dL Normal [id number] [facility] HbA1c MFr Bld 7.3% Above high normal [id number] - 5.7 [facility] Creat SerPl-mCnc 1.01mg/dL Above high normal [id number] 0. 5 - 1 [facility] ALT SerPl-cCnc 26unit/L Normal [id number] 7 - 52 [facility] eGFRcr SerPlBld CKD-EPI 2020 61mL/min/1.7 3m2 Normal [id number] - [facility] CO2 SerPl-sCnc 30mmol/L Normal [id number] 24 - 32 [facility] Anion Gap SerPl-sCnc 10 Normal [id number] 5 - 14 [facility] AST SerPl-cCnc 22unit/L Normal [id number] 5 - 40 [facility] Chloride SerPl-sCnc 96mmol/L Below low normal [id number] 98 - 107 [facility] Bilirub SerPl-mCnc 0.6mg/dL Normal [id number] 0.3 - 1 [facility] Sodium SerPl-sCnc 136mmol/L Normal [id number] 135 - 145 [facility] Potassium SerPl-sCnc 4.3mmol/L Normal [id number] 3.5 - 5.1 [facility] BUN SerPl-mCnc 20mg/dL Above high normal [id number] 7 - 17 [facility] ALP SerPl-cCnc 80unit/L Normal [id number] 34 - 104 [facility] Glucose SerPl-mCnc 169mg/dL Above high normal [id number] 70 - 99 [facility] BUN/Creat SerPl 19.8 Normal [id number] 12 - 20 C [facility] Calcium SerPl-mCnc 10.3mg/dL Above high normal [id number] 8.4 - 10.2 [facility] Albumin SerPl-mCnc 5g/dL Normal [id number] 3.5 - 5 [facility] Prot SerPl-mCnc 8.2g/dL Normal [id number] 6.4 - 8.5 C [facility] Hgb A1c MFr Bld HPLC 7.3% Above high normal [id number] - 5.7 [facility] VIT B12 SER MCNC 4806pg/mL Above high normal [id number] 18 0 - 914 [facility] LDLc SerPl Calc-mCnc 42mg/dL Below low normal [id number] 50 - 130 [facility] TRIGL SERPL-MCNC 364mg/dL Above high normal [id number] - 150 [facility] CHOLEST SERPL-MCNC 158mg/dL Normal [id number] 0 - 200 [facility] HDLC SERPL-MCNC 43mg/dL Normal [id number] 35 - 96 [facility] CREAT SERPL MCNC 1.1mg/dL Above high normal [id number] 0. 5 - 1 [facility] CALCIUM SERPL MCNC 9.8mg/dL Normal [id number] 8.4 - 10 .2 [facility] SODIUM SERPL SCNC 136mmol/L Normal [id number] 135 - 145 [facility] ANION GAP SERPL SCNC 13mmol/L Normal [id number] 5 - 14 [facility] Glomerular filtration rate/1.73 sq M. predicted 55 Below low normal [id number] 60 - [facility] HCO3 SER SCNC 28mmol/L Normal [id number] 24 - 32 [facility] GLUCOSE P FAST SERPL MCNC 209mg/dL Above high normal [id number] 70 - 99 [facility] BUN SERPL MCNC 19mg/dL Above high normal [id number] 7 - 17 [facility] CHLORIDE SERPL SCNC 95mmol/L Below low normal [id number] 98 - 107 [facility] POTASSIUM SERPL SCNC 4.1mmol/L Normal [id number] 3.5 - 5.1 [facility] ALBUMIN SERPL BCG MCNC 4.7g/dL Normal [id number] 3.5 - 5 [facility] Hgb A1c MFr Bld HPLC 7.3% Above high normal [id number] - 5.7 [facility] VIT B12 SER MCNC 5269pg/mL Above high normal [id number] 18 0 - 914 [facility] TSH SerPl DL<=0.005 mIU/L-aCnc 3.5uIU/mL Normal [id number] 0.45 - 5.33 [facility] CALCIUM SERPL MCNC 10.4mg/dL Above high normal [id number] 8.4 - 10.2 [facility] ANION GAP SERPL SCNC 12mmol/L Normal [id number] 5 - 14 [facility] Glomerular filtration rate/1.73 sq M. predicted 62 Normal [id number] 60 - [facility] HCO3 SER SCNC 30mmol/L Normal [id number] 24 - 32 [facility] AST SERPL CCNC 28U/L Normal [id number] 5 - 40 [facility] GLUCOSE SERPL MCNC 156mg/dL Normal [id number] 70 - 199 [facility] BUN SERPL MCNC 16mg/dL Normal [id number] 7 - 17 [facility] CHLORIDE SERPL SCNC 94mmol/L Below low normal [id number] 98 - 107 [facility] ALBUMIN SERPL BCG MCNC 5.1g/dL Above high normal [id number] 3.5 - 5 [facility] ALP SERPL-CCNC 97U/L Normal [id number] 34 - 104 [facility] ALT SERPL CCNC 28U/L Normal [id number] 7 - 52 [facility] CREAT SERPL MCNC 1mg/dL Normal [id number] 0.5 - 1 [facility] SODIUM SERPL SCNC 135mmol/L Normal [id number] 135 - 145 [facility] PROT SERPL MCNC 8.6g/dL Above high normal [id number] 6.4 - 8.5 [facility] BILIRUB SERPL MCNC 0.7mg/dL Normal [id number] 0.3 - 1 [facility] POTASSIUM SERPL SCNC 4.3mmol/L Normal [id number] 3.5 - 5.1 [facility] History of Medication Use Medication Directions Dispensed Refills Start Date End Date Stat canagliflozin (Invokana) 300 mg tablet 06/02/2021 active empagliflozin (Jardiance) 10 mg tablet Take 1 tablet (10 mg total) by mouth 1 (one) time each day in the morning. 07/23/2024 active furosemide (LASIX) 20 mg tablet Take 1 tablet (20 mg total) by mouth every other day. 07/30/2024 active atorvastatin (LIPITOR) 20 mg tablet Take 1 tablet (20 mg total) by mouth 1 (one) time each day. 07/30/2024 active cetirizine (ZyrTEC) 10 mg tablet Take 1 tablet (10 mg total) by mouth 1 (one) time each day. 07/30/2024 active canagliflozin (Invokana) 100 mg tablet TAKE 1 TABLET BY MOUTH EVERY DAY 06/14/2024 active Cetirizine Hydrochloride 10mg Tablet 03/11/2024 active fluticasone (FLONASE) 50 MCG/ACT nasal spray SPRAY/APPLY 1 SPRAY IN EACH NOSTRIL DAILY 08/28/2023 active Accu-Chek Connie Plus test strip USE TO TEST BLOOD SUGAR DAILY 12/11/2022 active valsartan (DIOVAN) tablet 80 mg Take 1 tablet (80 mg total) by mouth daily. 07/11/2023 active cetirizine (ZyrTEC) 10 mg tablet TAKE 1 TABLET BY MOUTH EVERY DAY 07/30/2023 active metFORMIN (GLUCOPHAGE-XR) ER 24 hr tablet 500 mg TAKE 2 TABLETS (1,000 MG TOTAL) BY MOUTH 2 (TWO) TIMES A DAY BEFORE BREAKFAST AND DINNER. 06/11/2023 05/26/2024 active valsartan (DIOVAN) 80 mg tablet Take 1 tablet (80 mg total) by mouth daily. 07/11/2023 active aspirin 81 mg EC tablet Take 1 tablet (81 mg total) by mouth daily. active furosemide (LASIX) 20 mg tablet Take 1 tablet (20 mg total) by mouth daily as needed. Only use if you develop swelling 03/18/2023 active triamcinolone (KENALOG) 0.1 % cream APPLY TO AFFECTED AREA TWICE A DAY 06/20/2023 active Continuous Blood Gluc Licensed Prosthetist (FreeStyle Jessica 2 [place]) ELISEO Inject 1 Device under the skin 2 (two) times a day before breakfast and dinner. 11/19/2021 active Valslartan 03/11/2024 active Continuous Blood Gluc Sensor (FreeStyle Jessica 2 Sensor) MISC 1 each by Does not apply route every 14 (fourteen) days. 05/27/2022 active Mirabegron ER (Myrbetriq) 25 MG TB24 24 hr tablet Take 1 tablet (25 mg total) by mouth daily. 10/30/2023 active amLODIPine (NORVASC) 10 mg tablet TAKE 1 TABLET BY MOUTH EVERY DAY 05/13/2024 active folic acid (FOLVITE) 1 mg tablet TAKE 1 TABLET EVERY DAY 06/19/2023 active gabapentin (NEURONTIN) 300 MG capsule TAKE 2 CAPSULES BY MOUTH 3 TIMES A DAY 06/11/2023 active Invokana 100 MG tablet TAKE 1 TABLET BY MOUTH EVERY DAY 02/16/2024 active folic acid (FOLVITE) 1 mg tablet TAKE 1 TABLET EVERY DAY 06/19/2023 active linaGLIPtin (Tradjenta) 5 mg tablet TAKE 1 TABLET (5 MG TOTAL) BY MOUTH DAILY. 06/20/2023 active Myrbetriq 25 MG TB24 24 hr tablet TAKE 1 TABLET (25 MG TOTAL) BY MOUTH DAILY. 03/22/2024 active amLODIPine (NORVASC) 10 mg tablet TAKE 1 TABLET BY MOUTH EVERY DAY 06/11/2023 active fluticasone propionate (FLONASE) 50 mcg/actuation nasal spray spray/apply 1 spray in each nostril daily. 11/03/2022 active blood sugar diagnostic (Accu-Chek Connie Plus test strp) test strip USE TO TEST BLOOD SUGAR DAILY 05/13/2017 active amLODIPine (NORVASC) tablet 10 mg TAKE 1 TABLET BY MOUTH EVERY DAY 06/11/2023 active linaGLIPtin (Tradjenta) 5 mg tablet TAKE 1 TABLET (5 MG TOTAL) BY MOUTH DAILY. 06/20/2023 active amLODIPine (NORVASC) tablet 10 mg TAKE 1 TABLET BY MOUTH EVERY DAY 11/27/2023 active atorvastatin (LIPITOR) tablet 20 mg TAKE 1 TABLET BY MOUTH EVERY DAY 02/16/2024 active triamcinolone (KENALOG) 0.1 % cream APPLY TO AFFECTED AREA TWICE A DAY 06/20/2023 active atorvastatin (LIPITOR) tablet 20 mg TAKE 1 TABLET BY MOUTH EVERY DAY 02/10/2023 active atorvastatin (LIPITOR) 20 mg tablet TAKE 1 TABLET BY MOUTH EVERY DAY 02/10/2023 active cetirizine (ZyrTEC) 10 MG tablet TAKE 1 TABLET BY MOUTH EVERY DAY 11/27/2023 active folic acid (FOLVITE) tablet 1 mg TAKE 1 TABLET EVERY DAY 06/19/2023 active triamcinolone (KENALOG) 0.1 % cream APPLY TO AFFECTED AREA TWICE A DAY 06/20/2023 active gabapentin (NEURONTIN) 300 mg capsule Take 2 capsules (600 mg total) by mouth 2 (two) times a day AND 3 capsules (900 mg total) at bedtime. 06/11/2023 05/13/2024 active triamcinolone (KENALOG) 0.1 % cream APPLY TO AFFECTED AREA TWICE A DAY 06/20/2023 active amLODIPine (NORVASC) tablet 10 mg TAKE 1 TABLET BY MOUTH EVERY DAY 06/11/2023 active Multiple Vitamins-Minerals (STROVITE ONE) TABS Take 1 tablet by mouth daily. 05/13/2017 active metFORMIN XR (GLUCOPHAGE-XR) 500 mg 24 hr tablet TAKE 2 TABLETS (1,000 MG TOTAL) BY MOUTH 2 (TWO) TIMES A DAY BEFORE BREAKFAST AND DINNER. 06/11/2023 active furosemide (LASIX) 20 MG tablet TAKE 1 TABLET BY MOUTH EVERY OTHER DAY 03/18/2023 active Problems Problem Status Onset Date Problem Type Date of Resolution Source Hypertension active ProblemAct [facility] Vitamin D deficiency active ProblemAct [facility] Alcoholism active 2022-08-29 8 ProblemAct [facility] Nuclear senile cataract of both eyes active 2020-10-28 0 ProblemAct [facility] Diabetic neuropathy associated with type 2 diabetes mellitus active 2023-08-29 2 ProblemAct [facility] Post-nasal drip active 2022-05-31 8 ProblemAct [facility] Anxiety active 2017-04-30 4 ProblemAct [facility] Depressive disorder active 2022-08-29 8 ProblemAct [facility] Hyperlipidemia active 2023-08-29 2 ProblemAct [facility] Deficiency of other specified B group vitamins active 2023-08-29 2 ProblemAct [facility] Hypertension active 2023-08-29 2 ProblemAct [facility] Age-related cataract of both eyes active 2020-10-28 0 ProblemAct [facility] Hyponatremia active 2022-05-31 8 ProblemAct [facility] Hypercalcemia active 7 ProblemAct [facility] Type 2 diabetes mellitus with obesity active 2017-04-30 4 ProblemAct [facility] Diabetes mellitus active 2022-08-29 8 ProblemAct [facility] Type 2 diabetes mellitus with hyperglycemia active 7 ProblemAct [facility] Hyperlipidemia active ProblemAct [facility] Deficiency of other specified B group vitamins (CODE) active ProblemAct [facility] Type 2 diabetes mellitus with other diabetic neurological complication active 2024-02-29 2 EncounterDiagnosisAct [facility] Urinary urgency active 2 ProblemAct [facility] Weight gain active 2022-05-31 8 ProblemAct [facility] Localized swelling of lower extremity active 2024-03-31 5 ProblemAct [facility] Tachycardia active 2022-05-31 8 ProblemAct [facility] Tinea unguium, onychomycosis active 2024-02-29 2 ProblemAct [facility] 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 8 ProblemAct [facility] Laryngopharyngeal reflux active 2017-04-30 4 ProblemAct [facility] Mixed hyperlipidemia active EncounterDiagnosisA ct [facility] Vitamin D deficiency active 2023-08-29 2 ProblemAct [facility] Contusion of right great toe without damage to nail, initial encounter active 2022-02-28 2 ProblemAct [facility] Overactive bladder active 2023-10-29 6 ProblemAct [facility] Diabetic polyneuropathy associated with type 2 diabetes mellitus (HCC) active EncounterDiagnosisAct [facility] Diabetic neuropathy associated with type 2 diabetes mellitus active ProblemAct [facility] Immunizations Vaccine Date Source Lot Number Status Influenza Quadrivalent, with preservative (Fluzone; Afluria) 6mo and older 03/26/2018 [facility] [id number] completed Influenza Quadravalent, MDCK , 0.5ml, preservative free (Flucelvax) 6mo and older 03/31/2017 [facility] [id number] completed Zoster recombinant (Shingrix ) 19yo and older 02/01/2022 [facility] [id number] completed Influenza Quadravalent, MDCK , 0.5ml, preservative free (Flucelvax) 6mo and older 03/01/2015 [facility] [id number] completed Influenza Quadrivalent, 0.5m l, preservative free (Fluarix; FluLaval; Fluzone) ages 6mo and older (Afluria) 3yo and older 04/02/2021 [facility] completed Zoster Live 05/30/2022 [facility] [id number] completed Influenza Quadravalent, 0.5m l (Fluad) 65yo and older 03/07/2023 [facility] [id number] completed Influenza Quadrivalent, 0.5m l, preservative free (Fluarix; FluLaval; Fluzone) ages 6mo and older (Afluria) 3yo and older 03/26/2018 [facility] [id number] completed Influenza Quadravalent, MDCK , 0.5ml, preservative free (Flucelvax) 6mo and older 04/05/2019 [facility] [id number] completed Influenza Quadravalent, MDCK , 0.5ml, preservative free (Flucelvax) 6mo and older 03/17/2020 [facility] [id number] completed Tdap Tetanus diptheria acell ular pertussis (Boostrix; Adacel) 7yo and older 10/27/2017 [facility] [id number] completed Zoster recombinant (Shingrix ) 19yo and older 05/30/2022 [facility] [id number] completed Covid-19 (Pfizer) Dilution Required 09/21/2020 [facility] [id number] completed Covid-19 (Moderna 12+) Fall 2022 0.5mL 03/31/2023 [facility] [id number] completed Covid-19 (Pfizer) Dilution Required 10/12/2020 [facility] [id number] completed Influenza Quadrivalent, 0.5m l, preservative free (Fluarix; FluLaval; Fluzone) ages 6mo and older (Afluria) 3yo and older 02/22/2022 [facility] [id number] completed Pneumococcal conjugate 13 va lent (Prevnar 13, PCV13) 2mo and older 04/19/2022 [facility] [id number] complet ed Influenza Quadrivalent, 0.5m l, preservative free (Fluarix; FluLaval; Fluzone) ages 6mo and older (Afluria) 3yo and older 04/04/2016 [facility] [id number] completed Covid-19 (Pfizer) Dilution Required 06/12/2021 [facility] [id number] completed
--- OUTSIDE RECORDS SUMMARY | 2024-08-25 16:56 | XMS_ITS | Encounter Summary ---
Author Organization [facility] Address [address] [place] [address] Phone Care Team Providers Care Cloth Cutting Machine Operator Name Role Phone Skip Levy MD Primary Care Provider Unavail able Reason for Visit * Reason Comments Med Refill Encounter Details Date Type Department Care Team (Late st Contact Info) Description 07/29/2024 Refill [facility] [address] [place] [address] Gabriel Head MD [address] [address] Social History Tobacco Use Types Packs/Day Years Used Date Smoking Tobacco: Never Smokeless Tobacco: Never Comments Unknown Sex and Gender Information Value Date Recorded Sex Assigned at Not on file Legal Sex Female 8:57 AM EST Gender Identity Not on file Sexual Orientation Not on file documented as of this encounter Plan of Treatment Upcoming Encounters Date Type Department Care Team (Late st Contact Info) Description 09/14/2024 2:45 PM EDT Office Visit [facility] [address] [place] [address] Gabriel Head MD [address] [facility] [address] [place] [address] documented as of this encounter Visit Diagnoses Not on filedocumented in this encounter Care Teams Cloth Cutting Machine Operator Relationship Specialty Start Date End Date Skip Levy MD [address] [place] [address] PCP - General Internal Medicine 02/04/23 documented as of this encounter
--- OUTSIDE RECORDS SUMMARY | 2024-08-25 16:56 | XMS_ITS | Encounter Summary ---
Author Organization [facility] [place] [address] Care Team Providers Care Manufacturing Management Associate Name Role Phone Tenisha Cruz MD Primary Care Provider [phone] Reason for Visit * Reason Onset Date Comments Appointment 07/30/2024 Endocrinology ap pt Encounter Details Date Type Department Care Team (Late st Contact Info) Description 07/30/2024 [facility]phone [facility] [place] [address] [place] [id number] Jocelyn Flannery MA Appointment (Endocrinology appt) Social History Tobacco Use Types Packs/Day Years Used Date Smoking Tobacco: Never Smokeless Tobacco: Never Alcohol Use Standard Drinks/Week Comments Yes 0 (1 standard drink = 0.6 oz pur e alcohol) Comments Unknown Sex and Gender Information Value Date Recorded Sex Assigned at Female 05/11/2024 11:18 AM EST Legal Sex Female 3:37 AM EST Gender Identity Female 05/11/2024 11:18 AM EST Sexual Orientation Straight 05/11/2024 11 :18 AM EST documented as of this encounter Progress Notes * Jocelyn Flannery MA - 07/30/2024 12:14 PM EST Pt says she will be at her appt in [place] Friday documented in this encounter Plan of Treatment Upcoming Encounters Date Type Department Care Team (Late st Contact Info) Description 11/08/2024 11:15 AM EDT [facility] [place] [address] [place] [address] Georgina Gilbert PA [address] [place], [place] [id number] 02/08/2025 11:00 AM EDT Office Visit [facility] - [place] [address] [place] [phone] Tenisha Cruz MD [address] [place] [address] documented as of this encounter Visit Diagnoses Not on filedocumented in this encounter Care Teams Manufacturing Management Associate Relationship Specialty Start Date End Date Tenisha Cruz MD [address] [place] [address] PCP - General Internal Medicine 02/20/22 documented as of this encounter
--- OUTSIDE RECORDS SUMMARY | 2024-08-25 16:56 | XMS_ITS | Clinical Summary ---
Author Organization [facility] [address] Address [address] [place] [address] Phone Care Team Providers Care Head Of Strategy Name Role Phone Tenisha Cruz MD Primary Care Provider [phone] Allergies No known active allergies Medications blood sugar diagnostic (Accu-Chek Connie Plus test strp) test strip USE TO TEST BLOOD SUGAR DAILY 12/12/19 23 Active aspirin 81 mg EC tablet Take 1 tablet (81 mg total) by mouth daily. Active fluticasone propionate (FLONASE) 50 mcg/actuation nasal spray spray/apply 1 spray in each nostril daily. 11/04/19 23 Active folic acid (FOLVITE) 1 mg tablet TAKE 1 TABLET EVERY DAY 06/19/20 23 Active triamcinolone (KENALOG) 0.1 % cream APPLY TO AFFECTED AREA TWICE A DAY 06/20/20 23 Active valsartan (DIOVAN) 80 mg tablet Take 1 tablet (80 mg total) by mouth daily. 07/11/19 24 Active amLODIPine (NORVASC) 10 mg tablet TAKE 1 TABLET BY MOUTH EVERY DAY 90 tablet 1 05/13/20 24 Active gabapentin (NEURONTIN) 300 mg capsuleIndication s:Diabetic peripheral neuropathy associated with type 2 diabetes mellitus (CMS/HCC) Take 2 capsules (600 mg total) by mouth 2 (two) times a day AND 3 capsules (900 mg total) at bedtime. 210 each 2 05/13/20 24 Active metFORMIN XR (GLUCOPHAGE-XR) 500 mg 24 hr tabletIndications :Type 2 diabetes mellitus with other specified complication (CMS/HCC) TAKE 2 TABLETS (1,000 MG TOTAL) BY MOUTH 2 (TWO) TIMES A DAY BEFORE BREAKFAST AND DINNER. 360 tablet 1 06/10/20 24 Active Tradjenta 5 mg tabletIndications :Type 2 diabetes mellitus with other specified complication (CMS/HCC) TAKE 1 TABLET (5 MG TOTAL) BY MOUTH DAILY. 90 tablet 2 06/22/20 24 Active atorvastatin (LIPITOR) 20 mg tabletIndications :Pure hypercholesterole fredo, unspecified Take 1 tablet (20 mg total) by mouth 1 (one) time each day. 90 tablet 07/30/19 25 Active furosemide (LASIX) 20 mg tablet Take 1 tablet (20 mg total) by mouth every other day. 45 tablet 07/30/19 25 Active mirabegron (Myrbetriq) 25 mg 24 hr tablet TAKE 1 TABLET (25 MG TOTAL) BY MOUTH DAILY. 90 tablet 07/30/19 25 Active cetirizine (ZyrTEC) 10 mg tablet Take 1 tablet (10 mg total) by mouth 1 (one) time each day. 90 tablet 07/30/19 25 Active empagliflozin (Jardiance) 10 mg tabletIndications :Type 2 diabetes mellitus with diabetic polyneuropathy (CMS/HCC) TAKE 1 TABLET BY MOUTH 1 TIME EACH DAY IN THE MORNING. 90 tablet 1 08/20/19 25 Active atorvastatin (LIPITOR) 20 mg tablet TAKE 1 TABLET BY MOUTH EVERY DAY 02/11/20 23 025 Discontinued cetirizine (ZyrTEC) 10 mg tablet TAKE 1 TABLET BY MOUTH EVERY DAY 07/30/19 24 025 Discontinued furosemide (LASIX) 20 mg tablet Take 1 tablet (20 mg total) by mouth daily as needed. Only use if you develop swelling 03/18/20 23 025 Discontinued Myrbetriq 25 mg 24 hr tablet Take 1 tablet (25 mg total) by mouth 1 (one) time each day. 025 Discontinued empagliflozin (Jardiance) 10 mg tabletIndications :Type 2 diabetes mellitus with diabetic polyneuropathy (CMS/HCC) Take 1 tablet (10 mg total) by mouth 1 (one) time each day in the morning. 30 tablet 07/23/19 25 025 Discontinued canagliflozin (Invokana) 300 mg tablet 06/02/20 21 025 Discontinued Active Problems Problem Noted Date Diagnosed Date Annual physical exam 08/11/2024 Assessment & Plan (08/11/2024 11:46 AM EST): Patient is a 69 y.o. female with [...] She is current with her influenza and COVID- 19 vaccinations, having received the latter in 03/2024 at [facility]. She has not yet received the RSV vaccine. She was administered the shingles vaccine and received the pneumonia vaccine in 2021. Will order lipid panel Left carotid bruit 08/11/2024 Assessment & Plan (08/11/2024 11:50 AM EST): Asymptomatic, incidental finding during a wellness visit at home. Will order US of carotid arteries Localized swelling of lower extremity 04/23/2024 Overview (05/11/2024): Last Assessment & Plan: Patient is a [...] in 2 weeks after attempting conservative management. Assessment & Plan (08/11/2024 11:48 AM EST): She reports improvement in leg swelling with the use of compression stockings and elevating her feet. She is currently taking Lasix 20 mg every other day, which helps manage the swelling. She is advised to continue these measures and avoid increasing the frequency of Lasix due to potential kidney side effects. Assessment & Plan (05/11/2024 10:51 AM EST): Patient is a 69-year-old female with past medical history of type 2 diabetes mellitus, chronic kidney disease who presents with acute complaint of lower extremity swelling. Patient was recommended to use compression stockings and continue with Lasix every other day. She reports she has not been using compression stockings as regularly and does notice improvement when she uses compression stockings. Advised to use compression stockings on a daily basis and elevate feet. I will not increase her Lasix at this time given her chronic kidney disease. She has also not done echo yet, office staff reached out to hospital and this was scheduled for her. Follow-up in 3 months for annual wellness visit Deficiency of other specified B group vitamins 0 09/09/2023 Diabetic neuropathy associat ed with type 2 diabetes mellitus 09/09/2023 Hyperlipidemia 09/09/2023 Assessment & Plan (08/11/2024 11:47 AM EST): Her triglyceride levels were significantly elevated during the last assessment ordered by shae LANCASTER. A lipid panel will be ordered, and she is advised to fast prior to the test. Currently on liptor 20 mg qdaily Hypertension 09/09/2023 Vitamin D deficiency 09/09/2023 Urinary urgency 08/01/2023 Alcoholism 09/24/2022 Depressive disorder 09/24/2022 Diabetes mellitus 09/24/2022 Assessment & Plan (08/11/2024 11:48 AM EST): Her diabetes is currently under control. Follows with endocrinology Hyponatremia 06/26/2022 Post-nasal drip 06/26/2022 Tachycardia 06/26/2022 Weight gain 06/26/2022 Hypercalcemia 06/05/2022 Type 2 diabetes mellitus with hyperglycemia 12/2021 Age-related cataract of both eyes 11/06/2020 Nuclear senile cataract of both eyes 11/06/2020 Anxiety 05/13/2017 Laryngopharyngeal reflux 05/13/2017 Type 2 diabetes mellitus with obesity 05/13/2017 Encounters Date Type Department Care Team Description 08/11/2024 11:00 AM EST Office Visit [facility] [address] [place] [phone] Estelita Tee MD Medicare annual wellness visit, subsequent (Primary Dx); Encounter for screening mammogram for malignant neoplasm of breast; Mixed hyperlipidemia; Left carotid bruit; Annual physical exam; Type 2 diabetes mellitus without complication, without long-term current use of insulin ([facility]); Localized swelling of lower extremity 08/06/2024 Telephone Internal Medicine - [place] [address] [place] [address] Jen Ozuna RN FYI 08/02/2024 11:15 AM EST [facility] [place] [address] [place] [phone] Georgina Gilbert PA Type 2 diabetes mellitus with hyperglycemia, without long-term current use of insulin ([facility]) (Primary Dx); Hypertension, unspecified type; Mixed hyperlipidemia 07/30/2024 Telephone [facility] [place] [address] [place] [phone] Jocelyn Flannery MA Appointment (Endocrinology appt) 07/23/2024 Telephone [facility] [place] [address] [place] [address] Georgina Gilbert PA from Last 3 Months Immunizations Name Administration Dates Next Due Influenza Quadravalent, 0.5m l (Fluad) 65yo and older 03/07/2023 Influenza Quadravalent, MDCK , 0.5ml, preservative free (Flucelvax) 6mo and older 03/17/2020,04/05/2019,03/31/2017,2014 Influenza Quadrivalent, 0.5m l, preservative free (Fluarix; FluLaval; Fluzone) ages 6mo and older (Afluria) 3yo and older 02/22/2022,04/02/2021,03/30/2021,2017,04/04/2016 Influenza Quadrivalent, with preservative (Fluzone; Afluria) 6mo and older 03/26/2018 Influenza trivalent, 0.5mL ( Fluzone High-dose) 65yo and older 03/05/2024 Influenza trivalent, 0.5mL, preservative free (Fluarix; FluLaval; Fluzone) ages 6mo and older (Afluria) 3 years and older 03/01/2015 Pneumococcal conjugate 13 va lent (Prevnar 13, PCV13) 2mo and older 04/19/2022 Tdap Tetanus diptheria acell ular pertussis (Boostrix; Adacel) 7yo and older 10/27/2017 Zoster Live 05/30/2022 Zoster recombinant (Shingrix ) 19yo and older 05/30/2022,02/01/2022 Zoster, Unspecified 05/30/2022,02/01/2022 Surgical History Surgery Date Site/Laterality Comments JOINT REPLACEMENT Left PROCEDURE:JOINT REPLACEMENT;COMMENT:HIP TUBAL LIGATION PROCEDURE:TUBAL LIGATION HIP SURGERY Left PROCEDURE:HIP SURGERY CATARACT EXTRACTION W/ INTRAOCULAR LENS IMPLANT 11/14/2020 Right PROCEDURE:CATARACT EXTRACTION W/ INTRAOCULAR LENS IMPLANT;COMMENT:Procedure: RIGHT -EXTRACTION CATARACT WITH IOL IMPLANT; Surgeon: Gerald Torres MD; Location: [facility]; Service: Ophthalmology; Laterality: Right; CATARACT EXTRACTION W/ INTRAOCULAR LENS IMPLANT 11/22/2020 Left PROCEDURE:CATARACT EXTRACTION W/ INTRAOCULAR LENS IMPLANT;COMMENT:Procedure: LEFT EXTRACTION CATARACT WITH IOL IMPLANT; Surgeon: Gerald Torres MD; Location: [facility]; Service: Ophthalmology; Laterality: Left; TOTAL HIP ARTHROPLASTY Left PROCEDURE:TOTAL HIP ARTHROPLASTY COLONOSCOPY 09/10/2021 N/A PROCEDURE:COLONOSCOPY;COMMENT :Procedure: COLONOSCOPY; Surgeon: Lucy Szymanski MD; Location: [facility]; Service: Gastroenterology; Laterality: N/A; Medical History Medical History Date Comments Diabetes mellitus ([facility]/HCC) DX:D iabetes mellitus ([facility]) Hypertension DX:Hypertension Hyperlipidemia DX:Hyperlipidemi a Depression DX:Depression Anxiety DX:Anxiety Alcoholism (CMS/HCC) DX:Alcoholi sm (HCC) Diabetic neuropathy associat ed with type 2 diabetes mellitus (CMS/HCC) DX:Diabetic neuropathy ass ociated with type 2 diabetes mellitus (HCC) Vitamin D deficiency DX:Vitamin D deficiency Deficiency of other specifie d B group vitamins (CODE) DX:Deficiency of other speci fied B group vitamins (CODE) Cataract DX:Cataract Family History Medical History Relation Name Comments Hypertension Brother No Known Problems Father No Known Problems Maternal Grandfather Cancer Maternal Grandmother Heart disease Mother Hyperlipidemia Mother Hypertension Mother No Known Problems Paternal Grandfather No Known Problems Paternal Grandmother Hypertension Sister x 2 sisters [...] Orientation Straight 05/11/2024 11 :18 AM EST Obstetrics History Last Filed Vital Signs Vital Sign Reading [...] Mass Index 27.66 08/11/2024 10:58 AM EST Plan of Treatment Upcoming Encounters Date Type Department Care Team (Late st Contact Info) Description 11/08/2024 11:15 AM EDT Office [facility] [place] [address] [place] [phone] Georgina Gilbert PA [address] [place] [address] 02/08/2025 11:00 AM EDT Office Visit [facility] - [place] [address] [place] [address] Tenisha Cruz MD [address] [place] [address] Health Maintenance Due Date Last Done Comments Diabetes: Annual Foot Exam 1967 RSV Immunization Patients 60+ Years Old (1 - Risk 60-74 years 1-dose series) 2017 Hepatitis C Screening 06/07/2022 Social Influencers of Health Screening 06/07/2022 Pneumococcal Vaccine: 50+ Years (2 of 2 - PPSV23) 06/14/2022 04/19/2022 Zoster Vaccines (3 of 3) 07/25/2022 022, 05/30/2022, 05/30/2022, Additional history exists Diabetes: Annual Retina Eye Exam 02/05/2024 02/04/2023 Diabetes: Blood Sugar Control Test (HGBA1C) 02/07/2025 08/10/2024, 02/23/2024, 02/23/2024, Additional history exists Breast Cancer Screening 08/06/2025 08/06/19 24, 06/14/2022, 06/14/2022, Additional history exists Diabetes: Annual Urine Albumin-Creatinine Ratio (uACR) 08/10/2025 08/10/2024, 02/26/2023, 02/26/2023, Additional history exists Diabetes: Annual GFR (Glomerular Filtration Rate) 08/10/2025 08/10/2024, 02/23/2024, 02/23/2024, Additional history exists Hypertension/CHF/CAD Annual BMP Blood Test 08/10/2025 08/10/2024, 02/23/2024, 02/23/2024, Additional history exists Depression Screening 08/11/2025 08/11/2024, 08/01/19 24 Falls Risk Assessment 08/11/2025 08/11/2024, 024 Medicare Annual Wellness Visit 08/11/2025 08/11/2024 DTaP,Tdap,and Td Vaccines (2 - Td or Tdap) 10/28/2027 10/27/2017 Cholesterol Screening (Lipid Panel) 02/22/2029 02/23/2024, 02/23/2024, 02/26/2023, Additional history exists Colorectal Cancer Screening: Colonoscopy 09/11/2031 09/10/2021 Osteoporosis Screening (Bone Density Screening) 06/14/2032 06/14/2022, 06/14/2022 COVID-19 Vaccine Completed 03/05/2024, 07/2022, 06/12/2021, Additional history exists Influenza Vaccine Completed 03/05/2024, , 02/22/2022, Additional history exists HIB Vaccines Aged Out No longer eligi ble based on patient's age to complete this topic HPV Vaccines Aged Out No longer eligi ble based on patient's age to complete this topic Hepatitis A Vaccines Aged Out No long er eligible based on patient's age to complete this topic Hepatitis B Vaccines Aged Out No long er eligible based on patient's age to complete this topic IPV Vaccines Aged Out No longer eligi ble based on patient's age to complete this topic MMR Vaccines Aged Out No longer eligi ble based on patient's age to complete this topic Meningococcal ACWY Vaccine Aged Out N o longer eligible based on patient's age to complete this topic Meningococcal B Vacine Aged Out No lo nger eligible based on patient's age to complete this topic RSV Immunization Patients Under 20 months Aged Out No longer eligible based on patient's age to complete this topic Varicella Vaccines Aged Out No longer eligible based on patient's age to complete this topic Medical Devices Implanted Type Area Stunt Man Device Identifier Shelf Expiration Date Model / Serial / Lot Lens Iol Tecnis Tri-Fix Protec Dewar Acrylic +21.0 Diopter - [id number] - [id number] Implanted:Qty: 1 on 11/14/2020 by Gerald Torres MD Implants Right: Eye [employer] 08/26/2024 [id number] / [id number] / Lens Tecnis Simplicity Tecnis Protec Tri-Fix 13mm +2.5 - [id number] - [id number] Implanted:Qty: 1 on 11/22/2020 by Gerald Torres MD Left: Eye [employer] 07/16/2023 [id number] / [id number] / Procedures Procedure Name Priority Date/Time Associated Diagnosis Comments HEMOGLOBIN A1C Routine 08/10/2024 10:11 AM EST Type 2 diabetes mellitus with hyperglycemia, without long-term current use of insulin ([facility]) COMPREHENSIVE METABOLIC PANEL Routine 08/10/2024 10:11 AM EST Type 2 diabetes mellitus with hyperglycemia, without long-term current use of insulin ([facility]) MICROALBUMIN CREATININE URINE RATIO Routine 08/10/2024 10:11 AM EST Type 2 diabetes mellitus with hyperglycemia, without long-term current use of insulin ([facility]) MAMMOGRAM SCREENING BILATERAL 3D DANIEL WITH CAD Routine 08/06/2023 10:34 AM EST Encounter for screening mammogram for malignant neoplasm of breast DEPRESSION SCREENING Routine 08/01/2023 FALLS RISK ASSESSMENT Routine 08/01/2023 LIPID PANEL Routine 02/26/2023 DIABETES EYE EXAM Routine 02/04/2023 BONE DENSITY STUDY Routine 06/14/2022 10 :24 AM EST Encounter for screening for osteoporosis COLONOSCOPY Routine 09/10/2021 from Last 3 Months or Most Recently Relevant to Health Maintenance Results * Microalbumin creatinine urine ratio (08/10/2024 10:11 AM EST) Creatinine, Urine 46.4 mg/dL LAB CHEMISTRY METHOD 08/10/2024 6:18 PM EST [facility] Comment:No established refer ence range. Microalb, Ur <7.0 mg/L LAB CHEMISTRY METHOD 08/10/2024 6:18 PM EST [facility] Comment:No established refer ence range. Microalb/Creat Ratio <15 <30 mg/g creat LAB CHEMISTRY METHOD 08/10/2024 6:18 PM EST [facility] Comment:Concentrations outsi de detection limits, unable to calculate ratio. Urine Urine specimen obtained by clean catch procedure / Unknown Non-blood Collection / Unknown 08/10/2024 10:11 AM EST 08/10/2024 10:11 AM EST Georgina LANCASTER LAB URINE ORDERABLES Final Resu lt Performing Organization Address City/[facility] [address]/ZIP Co de Phone Number [facility] [address] [place] [address], * (ABNORMAL) Hemoglobin A1c (08/10/2024 10:11 AM EST) Hemoglobin A1C 7.3(H) <5.7 % LAB CHEMISTRY METHOD 08/10/2024 3:36 PM EST [facility] Mean Bld Glu Estim. 163 mg/dL LAB CHEMISTRY METHOD 08/10/2024 3:36 PM EST [facility] Blood Venous blood specimen / Unknown Venipuncture / Unknown 08/10/2024 10:11 AM EST 08/10/2024 10:11 AM EST Narrative [facility] - 08/10/2024 3:36 PM EST ADA Guidelines: ?? Increased risk Diabetes Mellitus A1C 5.7 - 6.4% and Fasting Blood Glucose 100 - 125 mg/dl Diabetes Mellitus: A1C >6.5% and Fasting Blood Glucose >125 mg/dl Georgina LANCASTER LAB BLOOD ORDERABLES Final Resu lt [facility] [address] [place] [address], [place] [phone] * (ABNORMAL) Comprehensive metabolic panel (08/10/2024 10:11 AM EST) [facility] Signature Sodium 136 135 - 145 mmol/L LAB CHEMISTRY METHOD 08/10/2024 10:56 AM [facility] Potassium 4.3 3.5 - 5.1 mmol/L LAB CHEMISTRY METHOD 08/10/2024 10:56 AM [facility] Chloride 96(L) 98 - 107 mmol/L LAB CHEMISTRY METHOD 08/10/2024 10:56 AM [facility] CO2 30 24 - 32 mmol/L LAB CHEMISTRY METHOD 08/10/2024 10:56 AM [facility] Anion Gap 10 5 - 14 LAB CHEMISTRY METHOD 08/10/2024 10:56 AM [facility] Glucose 169(H) 70 - 99 mg/dL LAB CHEMISTRY METHOD 08/10/2024 10:56 AM [facility] BUN 20(H) 7 - 17 mg/dL LAB CHEMISTRY METHOD 08/10/2024 10:56 AM [facility] Creatinine 1.01(H) 0.50 - 1.00 mg/dL LAB CHEMISTRY METHOD 08/10/2024 10:56 AM [facility] eGFR 61 >=60 mL/min/1. 73m2 LAB CHEMISTRY METHOD 08/10/2024 10:56 AM [facility] Comment:Calculation based on the??Chronic Kidney Disease Epidemiology Collaboration (CKD-EPI) equation refit??without adjustment for race. BUN/Creatinine Ratio 19.8 12.0 - 20.0 LAB CHEMISTRY METHOD 08/10/2024 10:56 AM [facility] Calcium 10.3(H) 8.4 - 10.2 mg/dL LAB CHEMISTRY METHOD 08/10/2024 10:56 AM [facility] AST (SGOT) 22 5 - 40 unit/L LAB CHEMISTRY METHOD 08/10/2024 10:56 AM EST [facility] ALT (SGPT) 26 7 - 52 unit/L LAB CHEMISTRY METHOD 08/10/2024 10:56 AM EST [facility] Alkaline Phosphatase 80 34 - 104 unit/L LAB CHEMISTRY METHOD 08/10/2024 10:56 AM EST [facility] Total Protein 8.2 6.4 - 8.5 g/dL LAB CHEMISTRY METHOD 08/10/2024 10:56 AM EST [facility] Albumin 5.0 3.5 - 5.0 g/dL LAB CHEMISTRY METHOD 08/10/2024 10:56 AM EST [facility] Total Bilirubin 0.6 0.3 - 1.0 mg/dL LAB CHEMISTRY METHOD 08/10/2024 10:56 AM EST [facility] Blood Venous blood specimen / Unknown Venipuncture / Unknown 08/10/2024 10:11 AM EST 08/10/2024 10:11 AM EST Georgina LANCASTER LAB BLOOD ORDERABLES Final Resu lt [facility] [address] [place] [address], * MAMMOGRAM SCREENING BILATERAL 3D DANIEL WITH CAD (08/06/2023 10:34 AM EST) Anatomical Region Laterality Modality Mammography 08/01/2023 12:1 0 PM EST Narrative 08/06/2023 11:12 AM EST This is a summary report. The complete report is available in the patient's medical record. If you cannot access the medical record, please contact the sending organization for a detailed fax or copy. EXAM PERFORMED: MAMMOGRAM SCREENING BILATERAL 3D DANIEL WITH CAD EXAM HISTORY: Screening COMPARISON: Prior mammograms most recently dated 06/14/2022 TECHNIQUE: Bilateral full field digital mammography synthesized (2-D) and Tomosynthesis (3-D) was performed using standard CC and MLO projections. FINDINGS: There are no dominant mass lesions, skin thickening, or nipple retraction. No cluster of suspicious microcalcifications is seen. BREAST DENSITY: ??Scattered fibroglandular densities within the breast parenchyma (25-50% fibroglandular tissue: Density B). ?? IMPRESSION: No radiographic evidence of malignancy. The results of this examination have been communicated to the patient through a lay letter in accordance with the Mammography Quality Standards Act. BI-RADS Category 1: Negative Session: Examination and interpretation performed during a separate session. [id number] Report reviewed and signed by : Dr. Leeanna Marin MD on 08/06/2023 11:12 AM. Workstation Name - [id number] Procedure Note Leeanna Marin MD - 02/16/2024 This is a summary report. The complete report is available in thepatient's medical record. If you cannot access the medical record, pleasecontact the sending organization for a detailed fax or copy. EXAM PERFORMED: MAMMOGRAM SCREENING BILATERAL 3D DANIEL WITH CAD EXAM HISTORY: Screening COMPARISON: Prior mammograms most recently dated 06/14/2022 TECHNIQUE: Bilateral full field digital mammography synthesized (2-D) andTomosynthesis (3-D) was performed using standard CC and MLO projections. FINDINGS: There are no dominant mass lesions, skin thickening, or nipple retraction.No cluster of suspicious microcalcifications is seen. BREAST DENSITY: Scattered fibroglandular densities within the breastparenchyma (25-50% fibroglandular tissue: Density B). IMPRESSION: No radiographic evidence of malignancy. The results of this examination have been communicated to the patientthrough a lay letter in accordance with the Mammography Quality StandardsAct. BI-RADS Category 1: Negative Session: Examination and interpretation performed during a separatesession. 334 Report reviewed and signed by : Dr. Leeanna Marin MD on 08/06/2023 11:12 AM.Workstation Name - [id number] us Tenisha Cruz MD IMG BI PROCEDURES Final Res ult * Hm Falls Risk Assessment (08/01/2023) [facility] Falls Risk Assessment Abstracted Result [facility] HEALTH MAINTENANCE Final Result * Depression Screening (08/01/2023) [facility] Depression Screening Abstracted Result [facility] Final Result * (ABNORMAL) Lipid panel (02/26/2023) [facility] Triglycerides 205(A) <=150 mg/dL Cholesterol 121 0 - 200 mg/dL HDL 41 35 - 96 mg/dL LDL Cholesterol 39(A) 50 - 130 mg/dL Blood Venous blood specimen / Unknown Result [facility] LAB BLOOD ORDERABLES Alice l Result * Diabetes Eye Exam (02/04/2023) [facility] Diabetes: Annual Retina Eye Exam Abstracted Result [facility] Final Result * BONE DENSITY STUDY (06/14/2022 10:24 AM EST) Anatomical Region Laterality Modality Bone Densitometr y 04/29/2022 4:10 PM EDT Narrative 06/17/2022 9:56 AM EST Bone density study. ?? Indication and risk factors: Postmenopausal female. ??Screening for osteoporosis. ?? Comparisons: None available. Study acquired on a Zweemie densitometer. Imaging of the lumbar spine and hip was completed. FINDINGS: LUMBAR SPINE Averaged L1 through L4: Bone density: 1.58 g/cm2 Z score: 4.3 T score: 3.1 Degenerative sclerotic endplate changes seen at multiple levels may erroneously elevate the averaged bone density of the lumbar spine. LEFT HIP Left femoral neck: Bone density: 1.05 g/cm2 Z score: 1.3 T score: 0.1 CONCLUSION: 1. ??Bone density of the lumbar spine and left hip measures within normal limits. SESSION: Not applicable World Health Organization Definitions of Osteoporosis: T score -0.9 and above: Normal BMD T score between -1.0 and -2.4: Low BMD (Osteopenia) T score -2.5 and below: Osteoporosis Report reviewed and signed by : Dr. Dali Bah on 06/17/2022 9:56 AM. Workstation Name - TAY Procedure Note Dali Bah MD - 08/01/2023 Bone density study. Indication and risk factors: Postmenopausal female. Screening forosteoporosis. Comparisons: None available. Study acquired on a Zweemie densitometer. Imaging of thelumbar spine and hip was completed. FINDINGS: LUMBAR SPINE Averaged L1 through L4: Bone density: 1.58 g/cm2 Z score: 4.3 T score: 3.1 Degenerative sclerotic endplate changes seen at multiple levels mayerroneously elevate the averaged bone density of the lumbar spine. LEFT HIP Left femoral neck: Bone density: 1.05 g/cm2 Z score: 1.3 T score: 0.1 CONCLUSION: 1. Bone density of the lumbar spine and left hip measures within normallimits. SESSION: Not applicable World Health Organization Definitions of Osteoporosis: T score -0.9 and above: Normal BMD T score between -1.0 and -2.4: Low BMD (Osteopenia) T score -2.5 and below: Osteoporosis Report reviewed and signed by : Dr. Dali Bah on 06/17/2022 9:56 AM.Workstation Name - TAY Isidro Ann DO IMG DXA PROCEDURES Alice l Result * Colonoscopy (09/10/2021) Colonoscopy No Interpretation , Abstracted Anatomical Region Laterality Modality Other Historical Provider HEALTH MAINTENANCE Final Result from Last 3 Months or Most Recently Relevant to Health Maintenance Insurance [place]ICAID - [place] [employer] MEDICARE Care Teams Head Of Strategy Relationship Specialty Start Date End Date Tenisha Cruz MD [address] [place] [address] PCP - General Internal Medicine 02/20/22
== END 2024-08-25 14:17 | disposition home or self-care (01) ==
PROVIDERS: PCP Internal Medicine; Visit Provider Internal Medicine Hypertension Specialist
DX: I10 Essential (primary) hypertension (principal); E87.1 Hypo-osmolality and hyponatremia
CPT/HCPCS: 99214

== ENCOUNTER → 2024-08-25 13:47 | Outpatient (BNVA) | payer SELFPAY | PROVIDERS: PCP Internal Medicine; Visit Provider Internal Medicine Hypertension Specialist | DX: I10 Essential (primary) hypertension (principal); E87.1 Hypo-osmolality and hyponatremia | CPT/HCPCS: 99212 ==

== ENCOUNTER 2025-02-09 14:13 | Outpatient (AMB) | payer MEDICARE, OTHER, SELFPAY ==
[2025-02-09 14:15] VITALS: BP 116/64; PULSE 95; O2SAT 97; BMI 27.2
--- NOTE | 2025-02-09 14:15 | HO.NEPHOV_ITS ---
Vital Signs 02/09/25 14:15 Height 5 ft 7 in Weight 174 lb BMI 27.2 BP 116/64 Blood Pressure Location Rt brachial Position Sitting Pulse 95 Pulse Source Pulse Oximeter Pulse Oximetry (%) 97 Oxygen Delivery Method Room Air Intake Visit Reasons: 6 month f/u-confirmed 02/02 PL Policy Writer Typist Required: No Accompanied by: Self / Same As Patient Allergies No Known Allergies Allergy (Verified 02/09/25 14:19) Medication List - Last Reviewed 02/09/25 by RAYMON Ware amlodipine 10 mg PO DAILY aspirin 81 mg PO DAILY atorvastatin mg PO DAILY blood sugar diagnostic (Accu-Chek Connie Plus test strips) As directed canagliflozin (Invokana) 100 mg PO DAILY cetirizine 10 mg PO DAILY empagliflozin (Jardiance) 25 mg PO DAILY fluticasone propionate 50 mcg/actuation sprays intranasal folic acid 1 mg PO DAILY furosemide mg PO Q OTHER DAY gabapentin 600 mg PO TID linagliptin (Tradjenta) 5 mg PO DAILY metformin ER 1,000 mg PO BID mirabegron ER (Myrbetriq) 25 mg PO DAILY triamcinolone acetonide 0.1% 1 appl topical BID-TID valsartan 80 mg PO DAILY HPI Comments Details: Pleasant 68 woman with a history of hypertension and chronic alcohol use. She was initially seen for hyponatremia. Lisinopril has been switched to Valsartan She used to drink vodka 2-3 drinks a day along with plenty of water. Now she has cut down alcohol intake 02/09/25 The patient is a 69-year-old female presenting with hyponatremia. She has not had a recent blood test to monitor her sodium levels, with the last test conducted in October. The patient reports well-controlled hypertension with a current blood pressure of 116/64 mmHg, attributed to effective medication management. The patient also reports elevated blood glucose levels, which are higher than previously recorded. She is currently taking both Invokana and Jardiance, although the rationale for this combination is unclear to her. Additionally, the patient has noticed the development of skin lesions, which she describes as small, itchy, and prone to scratching. These lesions appeared after a trip to [place], and she is uncertain of their cause. [facility] Medical History (Updated 02/25/24 @ 10:29 by Tenzin Spencer MD) Hyperlipidemia Hyposmolality and/or hyponatremia Essential (primary) hypertension Type 2 diabetes mellitus without complication Surgical History Hx of cataract surgery History of hip replacement H/O tubal ligation Family History Mother Heart disease Hypertension Social History Alcohol intake: current Patient Tobacco Use Status: Former Tobacco user Physical Exam Vital Signs: Last Vital Signs Pulse 95 02/09/25 14:15 BP 116/64 02/09/25 14:15 Pulse Ox 97 02/09/25 14:15 Oxygen Delivery Method Room Air 02/09/25 14:15 BMI result Body Mass Index 27.2 Const General: comfortable; No acute distress Orientation/consciousness: patient oriented x3 Eyes General: appearance normal, both eyes and all related structures Visual Collier: normal visual collier by confrontation Neck Neck: Yes supple and Yes no JVD Resp Effort & Inspection: normal respiratory effort and respiratory effort not decreased Auscultation: rhonchi Cardio Palpation: no palpable S3 and no palpable S4 Heart sounds: no rubs GI Inspection: Yes normal to inspection Palpation (GI): Soft to palpation Percussion: Yes normal to percussion Auscultation: normal bowel sounds General: Yes no CVA tenderness Back/Spine/Pelvis Back: no CVA tenderness Skin General skin exam: no petechiae and no purpura Neuro General: patient oriented x3 and no focal motor deficits Extrem General: No clubbing and No edema Assessment & Plan Assessment & Plan (1) Essential (primary) hypertension: Code(s): I10 - Essential (primary) hypertension Category: Medical Plan: BP well controlled No changes in medications (2) Hyposmolality and/or hyponatremia: Code(s): E87.1 - Hypo-osmolality and hyponatremia Category: Medical Plan: Sodium is acceptable Keep PO water trestriction of 1L per 24 hr Limit alcohol intake.. Plan Edema- asymptomatic May be due to Amlodipine Monitor DM Maintain A1C < 7% Concur with SGLT-2 inhibitors Orders: Orders Comprehensive Met. Panel Today E87.1 - Hypo-osmolality and hyponatremia, I10 - Essential (primary) hypertension Complete Blood Count Auto Diff Today E87.1 - Hypo-osmolality and hyponatremia, I10 - Essential (primary) hypertension Coding Level of Care Code Est Pt Level 4 (21272) Diagnoses Essential (primary) hypertension I10 Hyposmolality and/or hyponatremia E87.1
--- OUTSIDE RECORDS SUMMARY | 2025-02-09 14:31 | XMS_ITS | Clinical Summary ---
Author Organization [facility] Address [address] [place] [address] Care Team Providers Care Training And Development Assistant Name Role Phone Tenisha Cruz MD Primary Care Provider Unav ailable Allergies No known active allergies Medications Medication Sig Dispensed Refills Start Date End Date Status aspirin 81 MG tablet Take 1 tablet (81 mg total) by mouth daily. 0 Active Multiple Vitamins-Minerals (STROVITE ONE) TABS Take 1 tablet by mouth daily. 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 [...] 98 04/23/2024 11:29 AM EDT Temperature 36.3 C (97.3 F) 04/23/2024 11:29 AM EDT Respiratory Rate 16 09/10/2021 11:10 AM EDT [...] Exam (No Retinopathy) 02/04/2025 02/04/2023, 04/30/2021, 07/01/2017 Influenza Vaccine (#1) 2025 , 03/07/2023, 02/22/2022, Additional history exists BMI Counseling 04/14/2025 04/14/2024, 02/0 07/2023, 07/30/2023, [...] Completed 03/05/2024, 07/2022, 06/12/2021, Additional history exists Hepatitis B Vaccines Aged Out No long er eligible based on patient's age to complete this topic RSV Ped < 20 months Aged Out No longe r eligible based on patient's age to complete this topic Goals Goal Patient Goal Type Associated Problems Recent Progress Patient-Stated? Author Diabetes: Diet: Diet No Romana Anderson RD Note: Try to have up to [...] Sugars 1-2 Times Daily Wellness Coaching No Romana Anderson RD Note: Check blood sugar doing a fingerstick 2 hours after a meal once no longer using sensor on arm. Target blood sugar 2 hours after meals and at bedtime = less than 180 Target blood sugar before all meals = 80-140 Medical Devices Implanted Type Area Investigation Manager Device Identifier Shelf Expiration Date Model / Serial / Lot Lens Iol Tecnis Tri-Fix Protec [place] Acrylic +21.0 Diopter - [id number] - [id number] Implanted:Qty: 1 on 11/14/2020 by Gerald Torres MD at [facility] Location Lens Right: Eye [employer] 08/26/2024 [id number] / [id number] / Lens Tecnis Simplicity Tecnis Protec Tri-Fix 13mm +2.5 - [id number] - [id number] Implanted:Qty: 1 on 11/22/2020 by Gerald Torres MD at [facility] Location Left: Eye [employer] 07/16/2023 [id number] / [id number] / Additional Health Concerns Infection Onset Date Last Indicated COVID-19 Confirmed 07/27/2021 07/30/2021 Advance Directives For more information, please contact: [phone] Documents on File Type Date Recorded Patient Combat Control Manager Expl anation Advance Directive and Living Will 12/03/2018 8:46 AM Care Teams Training And Development Assistant Relationship Specialty Start Date End Date Tenisha Cruz MD PCP - General Internal Medicine 02/20/22
--- OUTSIDE RECORDS SUMMARY | 2025-02-09 14:31 | XMS_ITS ---
Author Name [facility] Organization Unknown Results Test Name/Text Value Interpretation Date Range Source eGFRcr SerPlBld CKD-EPI 2020 67.0 mL/min/1.73m2 11/19/2024 - [facility] Creat SerPl-mCnc 0.94 mg/dL 11/19/2024 0.5 - 1 C [facility] Potassium SerPl-sCnc 4.3 mmol/L 11/19/2024 3.5 - 5 .1 [facility] Sodium SerPl-sCnc 133.0 mmol/L Below low normal 11/19/2024 1 35 - 145 [facility] Glucose SerPl-mCnc 166.0 mg/dL Above high normal 11/19/2024 70 - 99 [facility] Anion Gap SerPl Calc-sCnc 9.0 11/19/2024 5 - 14 [facility] BUN SerPl-mCnc 18.0 mg/dL Above high normal 11/19/2024 7 - 1 7 [facility] Chloride SerPl-sCnc 95.0 mmol/L Below low normal 11/19/2024 98 - 107 [facility] CO2 SerPl-sCnc 29.0 mmol/L 11/19/2024 24 - 32 CT _[facility] Calcium SerPl-mCnc 9.9 mg/dL 11/19/2024 8.4 - 10.2 [facility] BUN/Creat SerPl 19.1 11/19/2024 12 - 20 [facility] Fructosamine SerPl-sCnc 320.0 umol /L Normal 10/18/2024 - [facility] Trigl SerPl-mCnc 313.0 mg/dL Above high normal 10/15/2024 - 150 [facility] HDLc SerPl-mCnc 48.0 mg/dL Normal 10/15/2024 35 - 96 CT _[facility] Cholest SerPl-mCnc 159.0 mg/dL Normal 10/15/2024 0 - 200 [facility] VLDLc SerPl Calc-mCnc 62.6 mg/dL Normal 10/15/2024 [facility] LDLc SerPl Calc-mCnc 48.0 mg/dL Below low normal 10/15/2024 50 - 130 [facility] Sodium SerPl-sCnc 132.0 mmol/L Below low normal 10/15/2024 1 35 - 145 [facility] eGFRcr SerPlBld CKD-EPI 2020 65.0 mL/min/1.73m2 Normal 10/15/2024 - [facility] CO2 SerPl-sCnc 28.0 mmol/L Normal 10/15/2024 24 - 32 CT _[facility] Creat SerPl-mCnc 0.96 mg/dL Normal 10/15/2024 0.5 - 1 C T_[facility] Potassium SerPl-sCnc 4.7 mmol/L Normal 10/15/2024 3.5 - 5 .1 [facility] Anion Gap SerPl-sCnc 6.0 Normal 10/15/2024 5 - 14 [facility] BUN SerPl-mCnc 20.0 mg/dL Above high normal 10/15/2024 7 - 1 7 [facility] Chloride SerPl-sCnc 98.0 mmol/L Normal 10/15/2024 98 - 10 7 [facility] Calcium SerPl-mCnc 10.0 mg/dL Normal 10/15/2024 8.4 - 10. 2 [facility] Glucose SerPl-mCnc 184.0 mg/dL Above high normal 10/15/2024 70 - 99 [facility] BUN/Creat SerPl 20.8 Above high normal 10/15/2024 12 - 20 [facility] Microalbumin/Creat Ur <15.0 mg/g creat Normal 08/10/2024 - 30 [facility] Microalbumin Ur-mCnc <7.0 mg/L Normal 08/10/2024 [facility] Creat Ur-mCnc 46.4 mg/dL Normal 08/10/2024 [facility] Est. average glucose Bld gHb Est-mCnc 163.0 mg/dL Normal 08/10/2024 [facility] HbA1c MFr Bld 7.3 % Above high normal 08/10/2024 - 5.7 [facility] BUN/Creat SerPl 19.8 Normal 08/10/2024 12 - 20 [facility] Potassium SerPl-sCnc 4.3 mmol/L Normal 08/10/2024 3.5 - 5 .1 [facility] Sodium SerPl-sCnc 136.0 mmol/L Normal 08/10/2024 135 - 14 5 [facility] BUN SerPl-mCnc 20.0 mg/dL Above high normal 08/10/2024 7 - 1 7 [facility] Bilirub SerPl-mCnc 0.6 mg/dL Normal 08/10/2024 0.3 - 1 [facility] Albumin SerPl-mCnc 5.0 g/dL Normal 08/10/2024 3.5 - 5 [facility] Anion Gap SerPl-sCnc 10.0 Normal 08/10/2024 5 - 14 [facility] CO2 SerPl-sCnc 30.0 mmol/L Normal 08/10/2024 24 - 32 CT _[facility] Calcium SerPl-mCnc 10.3 mg/dL Above high normal 08/10/2024 8 .4 - 10.2 [facility] Glucose SerPl-mCnc 169.0 mg/dL Above high normal 08/10/2024 70 - 99 [facility] AST SerPl-cCnc 22.0 unit/L Normal 08/10/2024 5 - 40 CT _[facility] Chloride SerPl-sCnc 96.0 mmol/L Below low normal 08/10/2024 98 - 107 [facility] Prot SerPl-mCnc 8.2 g/dL Normal 08/10/2024 6.4 - 8.5 [facility]_ [facility] Creat SerPl-mCnc 1.01 mg/dL Above high normal 08/10/2024 0.5 - 1 [facility] eGFRcr SerPlBld CKD-EPI 2020 61.0 mL/min/1.73m2 Normal 08/10/2024 - [facility] ALT SerPl-cCnc 26.0 unit/L Normal 08/10/2024 7 - 52 CT _[facility] ALP SerPl-cCnc 80.0 unit/L Normal 08/10/2024 34 - 104 CT _[facility] ALBUMIN SERPL BCG MCNC 4.7 g/dL Normal 02/23/2024 3.5 - 5 [facility] LDLc SerPl Calc-mCnc 42.0 mg/dL Below low normal 02/24/2024 50 - 130 [facility] CHOLEST SERPL-MCNC 158.0 mg/dL Normal 02/24/2024 0 - 200 [facility] HDLC SERPL-MCNC 43.0 mg/dL Normal 02/24/2024 35 - 96 [facility] TRIGL SERPL-MCNC 364.0 mg/dL Above high normal 02/24/2024 - 150 [facility] POTASSIUM SERPL SCNC 4.1 mmol/L Normal 02/23/2024 3.5 - 5 .1 [facility] BUN SERPL MCNC 19.0 mg/dL Above high normal 02/23/2024 7 - 1 7 [facility] Glomerular filtration rate/1.73 sq M. predicted 55.0 Below low normal 02/23/2024 60 - [facility] CREAT SERPL MCNC 1.1 mg/dL Above high normal 02/23/2024 0.5 - 1 [facility] HCO3 SER SCNC 28.0 mmol/L Normal 02/23/2024 24 - 32 [facility] SODIUM SERPL SCNC 136.0 mmol/L Normal 02/23/2024 135 - 14 5 [facility] CHLORIDE SERPL SCNC 95.0 mmol/L Below low normal 02/23/2024 98 - 107 [facility] ANION GAP SERPL SCNC 13.0 mmol/L Normal 02/23/2024 5 - 14 [facility] GLUCOSE P FAST SERPL MCNC 209.0 mg/dL Above high normal 02/23/2024 70 - 99 [facility] CALCIUM SERPL MCNC 9.8 mg/dL Normal 02/23/2024 8.4 - 10.2 [facility] Hgb A1c MFr Bld HPLC 7.3 % Above high normal 02/24/2024 - 5.7 [facility] VIT B12 SER MCNC 4806.0 pg/mL Above high normal 02/24/2024 1 80 - 914 [facility] TSH SerPl DL<=0.005 mIU/L-aCnc 3.5 uIU/mL Normal 08/01/2023 0.45 - 5.33 [facility] VIT B12 SER MCNC 5269.0 pg/mL Above high normal 08/01/2023 1 80 - 914 [facility] Hgb A1c MFr Bld HPLC 7.3 % Above high normal 08/02/2023 - 5.7 [facility] HCO3 SER SCNC 30.0 mmol/L Normal 07/17/2023 24 - 32 [facility] CALCIUM SERPL MCNC 10.4 mg/dL Above high normal 07/17/2023 8 .4 - 10.2 [facility] SODIUM SERPL SCNC 135.0 mmol/L Normal 07/17/2023 135 - 14 5 [facility] PROT SERPL MCNC 8.6 g/dL Above high normal 07/17/2023 6.4 - 8.5 [facility] Glomerular filtration rate/1.73 sq M. predicted 62.0 Normal 07/17/2023 60 - [facility] AST SERPL CCNC 28.0 U/L Normal 07/17/2023 5 - 40 [facility] BILIRUB SERPL MCNC 0.7 mg/dL Normal 07/17/2023 0.3 - 1 [facility] CREAT SERPL MCNC 1.0 mg/dL Normal 07/17/2023 0.5 - 1 CT [facility] ALP SERPL-CCNC 97.0 U/L Normal 07/17/2023 34 - 104 [facility] GLUCOSE SERPL MCNC 156.0 mg/dL Normal 07/17/2023 70 - 199 [facility] ALBUMIN SERPL BCG MCNC 5.1 g/dL Above high normal 07/17/2023 3.5 - 5 [facility] CHLORIDE SERPL SCNC 94.0 mmol/L Below low normal 07/17/2023 98 - 107 [facility] BUN SERPL MCNC 16.0 mg/dL Normal 07/17/2023 7 - 17 [facility] ANION GAP SERPL SCNC 12.0 mmol/L Normal 07/17/2023 5 - 14 [facility] ALT SERPL CCNC 28.0 U/L Normal 07/17/2023 7 - 52 [facility] POTASSIUM SERPL SCNC 4.3 mmol/L Normal 07/17/2023 3.5 - 5 .1 [facility] History of Medication Use Medication Directions Dispensed Refills Start Date End Date [facility] Jardiance 25 mg tablet TAKE 1 TABLET BY MOUTH 1 TIME EACH DAY. 11/12/2024 active atorvastatin (LIPITOR) 40 mg tablet Take 1 tablet (40 mg total) by mouth 1 (one) time each day. 10/20/2024 active empagliflozin (JARDIANCE) 25 mg tablet Take 1 tablet (25 mg total) by mouth 1 (one) time each day. 10/20/2024 active folic acid (FOLVITE) 1 mg tablet Take 1 tablet (1,000 mcg total) by mouth 1 (one) time each day. 10/11/2024 active empagliflozin (Jardiance) 10 mg tablet TAKE 1 TABLET BY MOUTH 1 TIME EACH DAY IN THE MORNING. 08/20/2024 active atorvastatin (LIPITOR) 20 mg tablet Take 1 tablet (20 mg total) by mouth 1 (one) time each day. 07/30/2024 active cetirizine (ZyrTEC) 10 mg tablet Take 1 tablet (10 mg total) by mouth 1 (one) time each day. 07/30/2024 active furosemide (LASIX) 20 mg tablet Take 1 tablet (20 mg total) by mouth every other day. 07/30/2024 active empagliflozin (Jardiance) 10 mg tablet Take 1 tablet (10 mg total) by mouth 1 (one) time each day in the morning. 07/23/2024 active canagliflozin (Invokana) 100 mg tablet TAKE 1 TABLET BY MOUTH EVERY DAY 06/14/2024 active amLODIPine (NORVASC) 10 mg tablet TAKE 1 TABLET BY MOUTH EVERY DAY 05/13/2024 active Myrbetriq 25 MG TB24 24 hr tablet TAKE 1 TABLET (25 MG TOTAL) BY MOUTH DAILY. 03/22/2024 active Cetirizine Hydrochloride 10mg Tablet 03/11/2024 active Valslartan 03/11/2024 active atorvastatin (LIPITOR) tablet 20 mg TAKE 1 TABLET BY MOUTH EVERY DAY 02/16/2024 active Invokana 100 MG tablet TAKE 1 TABLET BY MOUTH EVERY DAY 02/16/2024 active amLODIPine (NORVASC) tablet 10 mg TAKE 1 TABLET BY MOUTH EVERY DAY 11/27/2023 active cetirizine (ZyrTEC) 10 MG tablet TAKE 1 TABLET BY MOUTH EVERY DAY 11/27/2023 active Mirabegron ER (Myrbetriq) 25 MG TB24 24 hr tablet Take 1 tablet (25 mg total) by mouth daily. 10/30/2023 active fluticasone (FLONASE) 50 MCG/ACT nasal spray SPRAY/APPLY 1 SPRAY IN EACH NOSTRIL DAILY 08/28/2023 active cetirizine (ZyrTEC) 10 mg tablet TAKE 1 TABLET BY MOUTH EVERY DAY 07/30/2023 active valsartan (DIOVAN) 80 mg tablet Take 1 tablet (80 mg total) by mouth daily. 07/11/2023 active valsartan (DIOVAN) tablet 80 mg Take 1 tablet (80 mg total) by mouth daily. 07/11/2023 active linaGLIPtin (Tradjenta) 5 mg tablet TAKE 1 TABLET (5 MG TOTAL) BY MOUTH DAILY. 06/20/2023 active linaGLIPtin (Tradjenta) 5 mg tablet TAKE 1 TABLET (5 MG TOTAL) BY MOUTH DAILY. 06/20/2023 active triamcinolone (KENALOG) 0.1 % cream APPLY TO AFFECTED AREA TWICE A DAY 06/20/2023 active triamcinolone (KENALOG) 0.1 % cream APPLY TO AFFECTED AREA TWICE A DAY 06/20/2023 active triamcinolone (KENALOG) 0.1 % cream APPLY TO AFFECTED AREA TWICE A DAY 06/20/2023 active triamcinolone (KENALOG) 0.1 % cream APPLY TO AFFECTED AREA TWICE A DAY 06/20/2023 active folic acid (FOLVITE) 1 mg tablet TAKE 1 TABLET EVERY DAY 06/19/2023 active folic acid (FOLVITE) 1 mg tablet TAKE 1 TABLET EVERY DAY 06/19/2023 active folic acid (FOLVITE) tablet 1 mg TAKE 1 TABLET EVERY DAY 06/19/2023 active metFORMIN (GLUCOPHAGE-XR) ER 24 hr tablet 500 mg TAKE 2 TABLETS (1,000 MG TOTAL) BY MOUTH 2 (TWO) TIMES A DAY BEFORE BREAKFAST AND DINNER. 06/11/2023 05/26/2024 active gabapentin (NEURONTIN) 300 mg capsule Take 2 capsules (600 mg total) by mouth 2 (two) times a day AND 3 capsules (900 mg total) at bedtime. 06/11/2023 05/13/2024 active amLODIPine (NORVASC) 10 mg tablet TAKE 1 TABLET BY MOUTH EVERY DAY 06/11/2023 active amLODIPine (NORVASC) tablet 10 mg TAKE 1 TABLET BY MOUTH EVERY DAY 06/11/2023 active amLODIPine (NORVASC) tablet 10 mg TAKE 1 TABLET BY MOUTH EVERY DAY 06/11/2023 active gabapentin (NEURONTIN) 300 MG capsule TAKE 2 CAPSULES BY MOUTH 3 TIMES A DAY 06/11/2023 active metFORMIN XR (GLUCOPHAGE-XR) 500 mg 24 hr tablet TAKE 2 TABLETS (1,000 MG TOTAL) BY MOUTH 2 (TWO) TIMES A DAY BEFORE BREAKFAST AND DINNER. 06/11/2023 active furosemide (LASIX) 20 mg tablet Take 1 tablet (20 mg total) by mouth daily as needed. Only use if you develop swelling 03/18/2023 active furosemide (LASIX) 20 MG tablet TAKE 1 TABLET BY MOUTH EVERY OTHER DAY 03/18/2023 active atorvastatin (LIPITOR) 20 mg tablet TAKE 1 TABLET BY MOUTH EVERY DAY 02/10/2023 active atorvastatin (LIPITOR) tablet 20 mg TAKE 1 TABLET BY MOUTH EVERY DAY 02/10/2023 active Accu-Chek Connie Plus test strip USE TO TEST BLOOD SUGAR DAILY 12/11/2022 active fluticasone propionate (FLONASE) 50 mcg/actuation nasal spray spray/apply 1 spray in each nostril daily. 11/03/2022 active Continuous Blood Gluc Sensor (FreeStyle Jessica 2 Sensor) MISC 1 each by Does not apply route every 14 (fourteen) days. 05/27/2022 active Continuous Blood Gluc Manager Clinical (FreeStyle Jessica 2 [place]) ELISEO Inject 1 Device under the skin 2 (two) times a day before breakfast and dinner. 11/19/2021 active canagliflozin (Invokana) 300 mg tablet 06/02/2021 active blood sugar diagnostic (Accu-Chek Connie Plus test strp) test strip USE TO TEST BLOOD SUGAR DAILY 05/13/2017 active Multiple Vitamins-Minerals (STROVITE ONE) TABS Take 1 tablet by mouth daily. 05/13/2017 active aspirin 81 mg EC tablet Take 1 tablet (81 mg total) by mouth daily. active Allergies Allergen Reaction Severity Comment Documented Date Source Statu s .NO KNOWN DRUG ALLERGIES ENS_POD CRCT Problems Problem Status Onset Date Problem Type Date of Resolution Source Hyponatremia active 2022-05-31 8 ProblemAct [facility] Alcohol use active 2022-08-29 8 ProblemAct [facility] Tachycardia active 2022-05-31 8 ProblemAct [facility] Depressive disorder active 2022-08-29 8 ProblemAct [facility] Vitamin D deficiency active ProblemAct [facility] Type 2 diabetes mellitus with hyperglycemia ([facility] V24, [facility] V28) active 7 ProblemAct [facility] Diabetic neuropathy associated with type 2 diabetes mellitus active ProblemAct [facility] Mixed hyperlipidemia active EncounterDiagnosisA ct [facility] Post-nasal drip active 2022-05-31 8 ProblemAct [facility] Hypertension active 2023-08-29 2 ProblemAct [facility] Nuclear senile cataract of both eyes active 2020-10-28 0 ProblemAct [facility] Anxiety active 2017-04-30 4 ProblemAct [facility] Hyperlipidemia active 2023-08-29 2 ProblemAct [facility] Weight gain active 2022-05-31 8 ProblemAct [facility] Vitamin D deficiency active 2023-08-29 2 ProblemAct [facility] Diabetes mellitus ([facility]/HCC V24, [facility] V28) active 2022-08-29 8 ProblemAct [facility] Diabetic neuropathy associated with type 2 diabetes mellitus ([facility]/HCC V24, [facility] V28) active 2023-08-29 2 ProblemAct [facility] Overactive bladder active 2023-10-29 6 ProblemAct [facility] Deficiency of other specified B group vitamins active 2023-08-29 2 ProblemAct [facility] Diabetic polyneuropathy associated with type 2 diabetes mellitus (HCC) active EncounterDiagnosisAct CTTHSF RAN Hyperlipidemia active ProblemAct CT[facility] N[facility] Age-related cataract of both eyes active 2020-10-28 0 ProblemAct [facility] Hypercalcemia active 7 ProblemAct [facility] Urinary urgency active 2 ProblemAct [facility] Type 2 diabetes mellitus with obesity (CMS/HCC V24, CMS/HCC V28) active 2017-04-30 4 ProblemAct [facility] Atherosclerosis of left carotid artery active 2024-07-31 2 ProblemAct [facility] Hypertension active ProblemAct CT[facility] MG Laryngopharyngeal reflux active 2017-04-30 4 ProblemAct [facility] Deficiency of other specified B group vitamins (CODE) active ProblemAct [facility] Localized swelling of lower extremity active 2024-03-31 5 ProblemAct [facility] Alcoholism active 2022-08-29 8 ProblemAct [facility] Contusion of right great toe without damage to nail, initial encounter active 2022-02-28 2 ProblemAct E[facility] Tinea unguium, onychomycosis active 2024-02-29 2 ProblemAct [facility] 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 8 ProblemAct [facility] Type 2 diabetes mellitus with other diabetic neurological complication active 2024-02-29 2 EncounterDiagnosisAct E[facility]_PODCRCT Immunizations Vaccine Date Source Lot Number Status Influenza trivalent, 0.5mL ( Fluzone High-dose) 65yo and older 03/05/2024 [facility] [id number] comple sebastian Covid-19 (Moderna 12+) Fall 2022 0.5mL 03/31/2023 [facility] [id number] completed Influenza Quadravalent, 0.5m l (Fluad) 65yo and older 03/07/2023 [facility] [id number] completed Zoster Live 05/30/2022 [facility] [id number] completed Zoster recombinant (Shingrix ) 19yo and older 05/30/2022 [facility] [id number] completed Zoster, Unspecified 05/30/2022 [facility] [id number] compl eted Pneumococcal conjugate 13 va lent (Prevnar 13, PCV13) 2mo and older 04/19/2022 [facility] [id number] complet ed Influenza Quadrivalent, 0.5m l, preservative free (Fluarix; FluLaval; Fluzone) ages 6mo and older (Afluria) 3yo and older 02/22/2022 [facility] [id number] completed Zoster recombinant (Shingrix ) 19yo and older 02/01/2022 [facility] [id number] completed Zoster, Unspecified 02/01/2022 [facility] [id number] compl eted Covid-19 (Sand Technology) Dilution Required 06/12/2021 [facility] [id number] completed Influenza Quadrivalent, 0.5m l, preservative free (Fluarix; FluLaval; Fluzone) ages 6mo and older (Afluria) 3yo and older 04/02/2021 [facility] completed Influenza Quadrivalent, 0.5m l, preservative free (Fluarix; FluLaval; Fluzone) ages 6mo and older (Afluria) 3yo and older 03/30/2021 [facility] [id number] completed Covid-19 (Sand Technology) Dilution Required 10/12/2020 [facility] [id number] completed Covid-19 (Sand Technology) Dilution Required 09/21/2020 [facility] [id number] completed Influenza Quadravalent, MDCK , 0.5ml, preservative free (Flucelvax) 6mo and older 03/17/2020 [facility] [id number] completed Influenza Quadravalent, MDCK , 0.5ml, preservative free (Flucelvax) 6mo and older 04/05/2019 [facility] [id number] completed Influenza Quadrivalent, 0.5m l, preservative free (Fluarix; FluLaval; Fluzone) ages 6mo and older (Afluria) 3yo and older 03/26/2018 [facility] [id number] completed Influenza Quadrivalent, with preservative (Fluzone; Afluria) 6mo and older 03/26/2018 [facility] [id number] completed Tdap Tetanus diptheria acell ular pertussis (Boostrix; Adacel) 7yo and older 10/27/2017 [facility] [id number] completed Influenza Quadravalent, MDCK , 0.5ml, preservative free (Flucelvax) 6mo and older 03/31/2017 [facility] [id number] completed Influenza Quadrivalent, 0.5m l, preservative free (Fluarix; FluLaval; Fluzone) ages 6mo and older (Afluria) 3yo and older 04/04/2016 [facility] [id number] completed Influenza Quadravalent, MDCK , 0.5ml, preservative free (Flucelvax) 6mo and older 03/01/2015 [facility] [id number] completed Influenza trivalent, 0.5mL, preservative free (Fluarix; FluLaval; Fluzone) ages 6mo and older (Afluria) 3 years and older 03/01/2015 [facility] [id number] completed Encounters Encounter Type Encounter Reason Primary Diagnosis Location Date Ambulatory Follow-up Follow-up [facility] 12/13/2024 Ambulatory Type 2 diabetes mellitus with hyperglycemia (CMS/HCC V24, [facility] V28) Type 2 diabetes mellitus with hyperglycemia (CMS/HCC V24, [facility] V28) [facility] 10/13/2024 Ambulatory Diabetes Mellitus Diabetes Mellitus [facility] 10/13/2024 Ambulatory Follow-up Follow-up [facility] 09/29/2024 Ambulatory Diabetes Mellitus Diabetes Mellitus [facility] 09/29/2024 Ambulatory Other specified symptoms and signs involving the circulatory and respiratory systems Other specified symptoms and signs involving the circulatory and respiratory systems [facility] 09/23/2024 Ambulatory Encounter for screening mammogram for malignant neoplasm of breast Encounter for screening mammogram for malignant neoplasm of breast [facility] 09/23/2024 Ambulatory Annual Exam Encounter for ge neral adult medical examination without abnormal findings [facility] 08/11/2024 Ambulatory Follow-up Type 2 diabetes mellitus with hyperglycemia [facility] 08/02/2024 Ambulatory Other specified soft tissue disorders Other specified soft tissue disorders [facility] 05/17/2024 Ambulatory Type 2 diabetes mellitus with diabetic polyneuropathy Type 2 diabetes mellitus with diabetic polyneuropathy [facility] 05/13/2024 Ambulatory Follow-up Other specified soft tissue disorders [facility] 05/11/2024 Ambulatory Other specified soft tissue disorders Other specified soft tissue disorders [facility] 04/23/2024 Ambulatory Type 2 diabetes mellitus with hyperglycemia Type 2 diabetes mellitus with hyperglycemia [facility] 04/14/2024 Ambulatory Type 2 diabetes mellitus with hyperglycemia Type 2 diabetes mellitus with hyperglycemia [facility] [place] [place] 04/14/2024 Ambulatory Type 2 diabetes mellitus with hyperglycemia Type 2 diabetes mellitus with hyperglycemia [facility] 02/23/2024 Ambulatory Encounter for screening mammogram for malignant neoplasm of breast Encounter for screening mammogram for malignant neoplasm of breast [facility] 08/06/2023 Ambulatory Type 2 diabetes mellitus with hyperglycemia Type 2 diabetes mellitus with hyperglycemia [facility] 08/01/2023 Ambulatory Type 2 diabetes mellitus with hyperglycemia Type 2 diabetes mellitus with hyperglycemia [facility] [place] [place] 07/30/2023 Ambulatory Type 2 diabetes mellitus with other specified complication Type 2 diabetes mellitus with other specified complication [facility] 07/17/2023 Ambulatory Type 2 diabetes mellitus with other specified complication Type 2 diabetes mellitus with other specified complication [facility] 02/26/2023 Ambulatory Type 2 diabetes mellitus with other specified complication Type 2 diabetes mellitus with other specified complication [facility] [place] [place] 02/12/2023 Ambulatory Hypo-osmolality and hyponatremia Hypo-osmolality and hyponatremia [facility] 02/04/2023 Ambulatory [facility] 06/12/2022 Care Team Organization Name Specialty Phone Email Start Date End Da te [facility] 05/19/2024 [facility] [place] [facility] 05/10/2024 [facility] Primary Care 05/07/2024 [facility] 03/13/2024 [facility] Tenisha Cruz MD Primary Care 03/11/2024 [facility] [place] [place] 02/13/2023 01/11/2025 [facility] Primary Care 02/12/202302/12 [facility] 02/06/2023 01/11/2025 [facility] Primary Care 02/04/2023 02/04/2023 [facility] 11/29/2022 [facility] Primary Care 06/12/2022 03/04/[address] [facility] FAVIOLA CAMPO Primary Care 07/02/2021 09/10/2021 Lori Araujo Primary Care
--- OUTSIDE RECORDS SUMMARY | 2025-02-09 14:31 | XMS_ITS | Encounter Summary ---
Author Organization Formerly [facility] Address [address] [place] [id number] Care Team Providers Care Air Traffic Controller Name Role Phone Nkechi Cowan APRN Primary Care Provider Encounter Details Date Type Department Care Team (Late st Contact Info) Description 06/05/2021 Scanned Document [facility] [address] [facility] [address] [place] [address] Provider, External, [address] [place] [address] Social History Tobacco Use Types Packs/Day Years Used Date Smoking Tobacco: Never Assessed Comments Unknown Sex and Gender Information Value Date Recorded Sex Assigned at Not on file Legal Sex Female 6:54 PM EST Gender Identity Not on file Sexual Orientation Not on file documented as of this encounter Plan of Treatment Not on file documented as of this encounter Visit Diagnoses Not on filedocumented in this encounter Care Teams Air Traffic Controller Relationship Specialty Start Date End Date Nkechi Cowan APRN PCP - General Family Medicine 06/05/21 documented as of this encounter
--- OUTSIDE RECORDS SUMMARY | 2025-02-09 14:31 | XMS_ITS | Clinical Summary ---
Author Organization [facility] [address] Address [address] [place] [address] Phone Care Team Providers Care Shear Scrapman Name Role Phone Tenisha Cruz MD Primary Care Provider [phone] Allergies No known active allergies Medications blood sugar diagnostic (Accu-Chek Connie Plus test strp) test strip USE TO TEST BLOOD SUGAR DAILY 3 Active aspirin 81 mg EC tablet Take 1 tablet (81 mg total) by mouth daily. Active fluticasone propionate (FLONASE) 50 mcg/actuation nasal spray spray/apply 1 spray in each nostril daily. 3 Active triamcinolone (KENALOG) 0.1 % cream APPLY TO AFFECTED AREA TWICE A DAY 3 Active valsartan (DIOVAN) 80 mg tablet Take 1 tablet (80 mg total) by mouth daily. 4 Active metFORMIN XR (GLUCOPHAGE-XR) 500 mg 24 hr tabletIndications :Type 2 diabetes mellitus with other specified complication (CMS/HCC V24, CMS/HCC V28) TAKE 2 TABLETS (1,000 MG TOTAL) BY MOUTH 2 (TWO) TIMES A DAY BEFORE BREAKFAST AND DINNER. 360 tablet 1 4 Active Tradjenta 5 mg tabletIndications :Type 2 diabetes mellitus with other specified complication (CMS/HCC V24, CMS/HCC V28) TAKE 1 TABLET (5 MG TOTAL) BY MOUTH DAILY. 90 tablet 2 4 Active mirabegron (Myrbetriq) 25 mg 24 hr tablet TAKE 1 TABLET (25 MG TOTAL) BY MOUTH DAILY. 90 tablet 1 5 Active furosemide (LASIX) 20 mg tablet TAKE 1 TABLET BY MOUTH EVERY OTHER DAY 45 tablet 1 5 Active cetirizine (ZyrTEC) 10 mg tablet TAKE 1 TABLET BY MOUTH 1 TIME EACH DAY. 90 tablet 1 5 Active folic acid (FOLVITE) 1 mg tablet Take 1 tablet (1,000 mcg total) by mouth 1 (one) time each day. 90 tablet 3 5 Active atorvastatin (LIPITOR) 40 mg tablet Take 1 tablet (40 mg total) by mouth 1 (one) time each day. 90 each 1 5 Active amLODIPine (NORVASC) 10 mg tablet TAKE 1 TABLET BY MOUTH EVERY DAY 90 tablet 1 5 Active Jardiance 25 mg tabletIndications :Type 2 diabetes mellitus with hyperglycemia, without long-term current use of insulin ([facility] V24, [facility] V28) TAKE 1 TABLET BY MOUTH 1 TIME EACH DAY. 90 tablet 5 Active gabapentin (NEURONTIN) 300 mg capsuleIndication s:Diabetic peripheral neuropathy associated with type 2 diabetes mellitus (CMS/HCC V24, CMS/[facility] V28) TAKE 2 CAPSULES (600 MG) BY MOUTH 2 (TWO) TIMES A DAY AND 3 CAPSULES (900 MG) AT BEDTIME. 210 capsule 2 5 Active Active Problems Problem Noted Date Diagnosed [...] having received the latter in 03/[address] [facility]. She has not yet received the RSV vaccine. She was administered the shingles vaccine and received the pneumonia vaccine in 2021. Will order lipid panel Atherosclerosis of left carotid artery Assessment & Plan (09/29/2024 12:36 PM EDT): Vascular US: Severe bulky calcified atherosclerotic plaque at the left carotid bifurcation with less than 50% stenosis of the left internal carotid artery. - Patient is currently on aspirin and cholesterol medication (20 mg) - Optimize cholesterol levels to prevent further progression of plaque - Advised to abstain from food after midnight and undergo fasting blood work tomorrow to assess cholesterol levels - Consider increasing dosage of cholesterol medication if levels remain uncontrolled Assessment & Plan (08/11/2024 11:50 AM EST): [...] associat ed with type 2 diabetes mellitus ([facility] V24, [facility] V28) 09/09/2023 Assessment & Plan (09/29/2024 12:37 PM EDT): - Diabetes appears to be stable, follows with endo Hyperlipidemia 09/09/2023 Assessment & Plan (08/11/2024 11:47 AM EST): Her triglyceride levels were significantly elevated during the last assessment ordered by shae LANCASTER. A lipid panel will be ordered, and she is advised to fast prior to the test. Currently on liptor 20 mg qdaily Hypertension 09/09/2023 Vitamin D deficiency 09/09/2023 Urinary urgency 08/01/2023 Alcohol use 09/24/2022 Assessment & Plan (09/29/2024 12:38 PM EDT): - Drinks about 2 vodka tonics once a week, usually on Sundays, she has decreased her drinking. - Advised to consider decreasing alcohol intake further. Depressive disorder 09/24/2022 Diabetes mellitus ([facility] V24, [facility] V28) Assessment & Plan (08/11/2024 11:48 AM EST): Her diabetes is currently under control. Follows with endocrinology Hyponatremia 06/26/2022 Post-nasal drip 06/26/2022 Tachycardia 06/26/2022 Weight gain 06/26/2022 Hypercalcemia 06/05/2022 Type 2 diabetes mellitus wit h hyperglycemia ([facility] V24, [facility] V28) 06/05/2022 Age-related cataract of both eyes 11/06/2020 Nuclear senile cataract of both eyes 11/06/2020 Anxiety 05/13/2017 Laryngopharyngeal reflux 05/13/2017 Type 2 diabetes mellitus wit h obesity ([facility] V24, [facility] V28) 05/13/2017 Encounters Date Type Department Care Team Description 12/13/2024 1:45 PM EDT Office Visit [facility] [address] [place] [id number] Georgina Gilbert PA Type 2 diabetes mellitus with hyperglycemia, without long-term current use of insulin ([facility] V24, [facility] V28) (Primary Dx) 11/29/2024 Telephone [facility] [address] [address] Nery Kelley MA Labs Only 11/24/2024 Telephone [facility] Metabolic Care [address] [address] Nery Kleley MA Results 11/15/2024 Telephone [facility] Metabolic [address] [address] Nery Kelley MA Labs Only from Last 3 Months Immunizations Name Administration [...] IOL IMPLANT; Surgeon: Gerald Torres MD; Location: [facility]; Service: Ophthalmology; Laterality: Right; CATARACT EXTRACTION W/ INTRAOCULAR LENS IMPLANT 11/22/2020 Left PROCEDURE:CATARACT EXTRACTION W/ INTRAOCULAR LENS IMPLANT;COMMENT:Procedure: LEFT EXTRACTION CATARACT WITH IOL IMPLANT; Surgeon: Gerald Torres MD; Location: [facility]; Service: Ophthalmology; Laterality: Left; TOTAL HIP ARTHROPLASTY Left PROCEDURE:TOTAL HIP ARTHROPLASTY COLONOSCOPY 09/10/2021 N/A PROCEDURE:COLONOSCOPY;COMMENT :Procedure: COLONOSCOPY; Surgeon: Lucy Szymanski MD; Location: [facility]; Service: Gastroenterology; Laterality: N/A; Medical History Medical History Date Comments Diabetes mellitus ([facility] V 24, [facility] V28) DX:Diabetes mellitus (HCC) Hypertension DX:Hypertension Hyperlipidemia DX:Hyperlipidemi a Depression DX:Depression Anxiety DX:Anxiety Alcoholism ([facility] V24, CMS/HCC V28) DX:Alcoholism (HCC) Diabetic neuropathy associat ed with type 2 diabetes mellitus (CMS/HCC V24, CMS/HCC V28) DX:Diabetic neuropathy assoc iated with type 2 diabetes mellitus (HCC) Vitamin [...] Sign Reading Time Taken Comments Blood Pressure 112/68 12/13/2024 1:39 PM EDT Pulse 106 12/13/2024 1:39 PM EDT Temperature 36.7 C (98.1 F) 09/29/2024 11:32 AM EDT Respiratory Rate - - Oxygen Saturation 96% 12/13/2024 1:39 PM EDT Inhaled Oxygen Concentration - - Weight 79.6 kg (175 lb 8 oz) 12/13/2024 1:39 PM EDT Height 170.2 cm (5' 7 ) 09/29/2024 11:32 AM EDT Body Mass Index 27.49 09/29/2024 11:32 AM EDT Plan of Treatment Upcoming Encounters Date Type Department Care Team (Late st Contact Info) Description 03/21/2025 11:15 AM EDT [facility] [place] [id number] Georgina Gilbert PA [address] [place] [address] Health Maintenance Due Date Last Done Comments Diabetes: Annual Foot Exam 1967 RSV Immunization Adult Patients (1 - Risk 60-74 years 1-dose series) 2017 Hepatitis C Screening 06/07/2022 Social Influencers of Health Screening 06/07/2022 Pneumococcal Vaccine: 50+ Years (2 of 2 - PPSV23) 06/14/2022 04/19/2022 Zoster Vaccines (3 of 3) 07/25/2022 022, 05/30/2022, 05/30/2022, Additional history exists Diabetes: Annual Retina Eye Exam 02/05/2024 02/04/2023 COVID-19 Vaccine ( season) 2024 03/05/2024, 03/31/2023, 06/12/2021, Additional history exists Diabetes: Blood Sugar Control Test (HGBA1C) 02/07/2025 08/10/2024, 02/23/2024, 02/23/2024, Additional history exists Influenza Vaccine (#1) 2025 , 03/07/2023, 02/22/2022, Additional history exists Diabetes: Annual Urine Albumin-Creatinine Ratio (uACR) 08/10/2025 08/10/2024, 02/26/2023, 02/26/2023, Additional history exists Falls Risk Assessment 08/11/2025 08/11/2024, 024 Medicare Annual Wellness Visit 08/11/2025 08/11/2024 Diabetes: Annual GFR (Glomerular Filtration Rate) 11/19/2025 11/19/2024, 10/15/2024, 08/10/2024, Additional history exists Hypertension/CHF/CAD Annual BMP Blood Test 11/19/2025 11/19/2024, 10/15/2024, 08/10/2024, Additional history exists Breast Cancer Screening 09/23/2026 09/24/19, 08/06/2023, 06/14/2022, Additional history exists DTaP,Tdap,and Td Vaccines (2 - Td or Tdap) 10/28/2027 10/27/2017 Cholesterol Screening (Lipid Panel) 10/15/2029 10/15/2024, 02/23/2024, 02/23/2024, Additional history exists Colorectal Cancer Screening: Colonoscopy 09/11/2031 09/10/2021 Osteoporosis Screening (Bone Density Screening) 06/14/2032 06/14/2022, 06/14/2022 Depression Screening Completed 08/11/2024, 08/01/19 24 HIB Vaccines Aged Out No longer eligi [...] age to complete this topic Meningococcal B Vaccine Aged Out No l onger eligible based on patient's age to complete this topic RSV Immunization Patients Under 20 months Aged Out No longer eligible based on patient's age to complete this topic Varicella Vaccines Aged Out No longer eligible based on patient's age to complete this topic Medical Devices Implanted Type Area Felt Finisher Device Identifier Shelf Expiration Date Model / Serial / Lot Lens Iol Tecnis Tri-Fix Protec [place] Acrylic +21.0 Diopter - [id number] - [id number] Implanted:Qty: 1 on 11/14/2020 by Gerald Torres MD Implants Right: Eye [employer] 08/26/2024 [id number] / [id number] / Lens Tecnis Simplicity Tecnis Protec Tri-Fix 13mm +2.5 - [id number] - [id number] Implanted:Qty: 1 on 11/22/2020 by Gerald Torres MD Left: Eye [employer] 07/16/2023 [id number] / [id number] / Procedures Procedure Name Priority Date/Time Associated Diagnosis Comments GLUCOSE MONITORING CONTINUOUS Routine 12/11/2024 3:54 PM EDT BASIC METABOLIC PANEL Routine 11/19/2024 10:29 AM EDT Type 2 diabetes mellitus with hyperglycemia, without long-term current use of insulin ([facility] V24, [facility] V28) LIPID PANEL Routine 10/15/2024 8:11 AM EDT Atherosclerosis of left carotid artery Mixed hyperlipidemia MG MAMMO DIGITAL SCREENING W ANIBAL BILAT Routine 09/23/2024 12:55 PM EDT Encounter for screening mammogram for malignant neoplasm of breast MICROALBUMIN CREATININE URINE RATIO Routine 08/10/2024 10:11 AM EST Type 2 diabetes mellitus with hyperglycemia, without long-term current use of insulin ([facility] V24, [facility] V28) HEMOGLOBIN A1C Routine 08/10/2024 10:11 AM EST Type 2 diabetes mellitus with hyperglycemia, without long-term current use of insulin ([facility] V24, [facility] V28) DEPRESSION SCREENING Routine 08/01/2023 FALLS RISK ASSESSMENT Routine 08/01/2023 DIABETES EYE EXAM Routine 02/04/2023 BONE DENSITY STUDY Routine 06/14/2022 10 :24 AM EST Encounter for screening for osteoporosis COLONOSCOPY Routine 09/10/2021 from Last 3 Months or Most Recently Relevant to Health Maintenance Results * GLUCOSE MONITORING CONTINUOUS (12/11/2024 3:54 PM EDT) us Historical Provider MD IN CLINIC/BEDSIDE ORDERAB LES Final Result * (ABNORMAL) Basic metabolic panel (11/19/2024 10:29 AM EDT) Sodium 133(L) 135 - 145 mmol/L LAB CHEMISTRY METHOD 11/19/2024 10:56 AM [facility] Potassium 4.3 3.5 - 5.1 mmol/L LAB CHEMISTRY METHOD 11/19/2024 10:56 AM [facility] Chloride 95(L) 98 - 107 mmol/L LAB CHEMISTRY METHOD 11/19/2024 10:56 AM [facility] CO2 29 24 - 32 mmol/L LAB CHEMISTRY METHOD 11/19/2024 10:56 AM [facility] Anion Gap 9 5 - 14 LAB CHEMISTRY METHOD 11/19/2024 10:56 AM [facility] Glucose 166(H) 70 - 99 mg/dL LAB CHEMISTRY METHOD 11/19/2024 10:56 AM [facility] BUN 18(H) 7 - 17 mg/dL LAB CHEMISTRY METHOD 11/19/2024 10:56 AM [facility] Creatinine 0.94 0.50 - 1.00 mg/dL LAB CHEMISTRY METHOD 11/19/2024 10:56 AM [facility] eGFR 67 >=60 mL/min/1. 73m2 LAB CHEMISTRY METHOD 11/19/2024 10:56 AM [facility] Comment:Calculation based on the Chronic Kidney Disease Epidemiology Collaboration (CKD-EPI) equation refit without adjustment for race. BUN/Creatinine Ratio 19.1 12.0 - 20.0 LAB CHEMISTRY METHOD 11/19/2024 10:56 AM [facility] Calcium 9.9 8.4 - 10.2 mg/dL LAB CHEMISTRY METHOD 11/19/2024 10:56 AM [facility] Blood Venous blood specimen / Unknown Venipuncture / Unknown 11/19/2024 10:29 AM EDT 11/19/2024 10:35 AM EDT us Georgina LANCASTER LAB BLOOD ORDERABLES Final Resu lt [facility] [address] [place] [address], [place] [phone] * (ABNORMAL) Lipid panel (10/15/2024 8:11 AM EDT) Cholesterol 159 0 - 200 mg/dL LAB CHEMISTRY METHOD 10/15/2024 1:05 PM EDT [facility] Triglycerides 313(H) <150 mg/dL LAB CHEMISTRY METHOD 10/15/2024 1:05 PM EDT [facility] HDL 48 35 - 96 mg/dL LAB CHEMISTRY METHOD 10/15/2024 1:05 PM EDT [facility] LDL Calculated 48(L) 50 - 130 mg/dL LAB CHEMISTRY METHOD 10/15/2024 1:05 PM EDT [facility] VLDL Cholesterol Primitivo 62.6 mg/dL LAB CHEMISTRY METHOD 10/15/2024 1:05 PM EDT [facility] Comment:No established refer ence range. Blood Venous blood specimen / Unknown Venipuncture / Unknown 10/15/2024 8:11 AM EDT 10/15/2024 8:17 AM EDT Estelita Tee MD LAB BLOOD ORDERABLES Final Resul t [facility] [address] [place] [address], [place] [phone] * MG Mammo Digital Screening w Anibal bilat (09/23/2024 12:55 PM EDT) Anatomical Region Laterality Modality Breast Bilateral Mammography 09/28/2024 4:15 PM EDT Impressions 09/28/2024 4:17 PM EDT No mammographic evidence of malignancy. BI-RADS CATEGORY: 1 - NEGATIVE RECOMMENDATION: Screening bilateral mammogram is recommended in 1 year. The patient will receive a lay summary regarding their personal breast density per current federal guidelines. Exam Location: [facility], [address], [place], [address], . Report reviewed and signed by : Dr. Felisa Hernandez on 09/28/2024 4:17 PM. Workstation Name - [id number] -------- FINAL REPORT -------- Dictated By: Felisa Hernandez Dictated Date: 09/28/2024 16:15 ET Assigned Physician: Felisa Hernandez Reviewed and Electronically Signed By: Felisa Hernandez Signed Date: 09/28/2024 16:17 ET Workstation ID: [id number] Transcribed By: Self Edit Transcribed Date: 09/28/2024 16:15 ET Narrative 09/28/2024 4:17 PM EDT EXAM: MG MAMMO DIGITAL SCREENING W ANIBAL BILAT EXAM DATE: 09/23/2024 11:58 AM HISTORY: Screening COMPARISON: 08/06/2023, 06/14/2022, 06/12/2021 TECHNIQUE: Bilateral digital mammography using tomosynthesis technique was performed in the standard CC and MLO projections. Computer-aided detection was utilized in the interpretation of this examination. TISSUE DENSITY: B - There are scattered areas of fibroglandular density. FINDINGS: No suspicious masses, grouped microcalcifications, or areas of architectural distortion are seen. Procedure Note Felisa Hernandez MD - 09/28/2024 EXAM: MG MAMMO DIGITAL SCREENING W ANIBAL BILAT EXAM DATE: 09/23/2024 11:58 AM HISTORY: Screening COMPARISON: 08/06/2023, 06/14/2022, 06/12/2021 TECHNIQUE: Bilateral digital mammography using tomosynthesis technique was performedin the standard CC and MLO projections. Computer-aided detection was utilized in the interpretation of thisexamination. TISSUE DENSITY: B - There are scattered areas of fibroglandular density. FINDINGS: No suspicious masses, grouped microcalcifications, or areas ofarchitectural distortion are seen. IMPRESSION: No mammographic evidence of malignancy. BI-RADS CATEGORY: 1 - NEGATIVE RECOMMENDATION: Screening bilateral mammogram is recommended in 1 year. The patient will receive a lay summary regarding their personal breastdensity per current federal guidelines. Exam Location: [facility], [address],[place], [place], [address], . Report reviewed and signed by : Dr. Felisa Hernandez on 09/28/2024 4:17 PM.Workstation Name - [id number] -------- FINAL REPORT -------- Dictated By: Felisa Hernandez Dictated Date: 09/28/2024 16:15 ET Assigned Physician: Felisa Hernandez Reviewed and Electronically Signed By: Felisa Hernandez Signed Date: 09/28/2024 16:17 ET Workstation ID: [id number] Transcribed By: Self Edit Transcribed Date: 09/28/2024 16:15 ET Estelita Tee MD IMG BI PROCEDURES Final Result * Microalbumin creatinine urine ratio (08/10/2024 10:11 AM EST) Creatinine, Urine 46.4 mg/dL LAB CHEMISTRY METHOD 08/10/2024 6:18 PM EST [facility] Comment:No established refer ence range. Microalb, Ur <7.0 mg/L LAB CHEMISTRY METHOD 08/10/2024 6:18 PM EST [facility] Comment:No established refer ence range. Microalb/Creat Ratio <15 <30 mg/g creat LAB CHEMISTRY METHOD 08/10/2024 6:18 PM EST [facility] Comment:Concentrations outsi de detection limits, unable to calculate ratio. Urine Urine specimen obtained by clean catch procedure / Unknown Non-blood Collection / Unknown 08/10/2024 10:11 AM EST 08/10/2024 10:11 AM EST us Georgina LANCASTER LAB URINE ORDERABLES Final Resu lt [facility] [address] [place] [address], [place] [phone] * (ABNORMAL) Hemoglobin A1c (08/10/2024 10:11 AM EST) [facility] Hemoglobin A1C 7.3(H) <5.7 % LAB CHEMISTRY METHOD 08/10/2024 3:36 PM EST [facility] Mean Bld Glu Estim. 163 mg/dL LAB CHEMISTRY METHOD 08/10/2024 3:36 PM EST [facility] Blood Venous blood specimen / Unknown Venipuncture / Unknown 08/10/2024 10:11 AM EST 08/10/2024 10:11 AM EST Narrative [facility] - 08/10/2024 3:36 PM EST ADA Guidelines: Increased risk Diabetes Mellitus A1C 5.7 - 6.4% and Fasting Blood Glucose 100 - 125 mg/dl Diabetes Mellitus: A1C >6.5% and Fasting Blood Glucose >125 mg/dl Georgina LANCASTER LAB BLOOD ORDERABLES Final Resu lt [facility] [address] [place] [address], [place] [phone] * Falls Risk Assessment (08/01/2023) [facility] Falls Risk Assessment Abstracted Historical Provider HEALTH MAINTENANCE Final Result * Depression Screening (08/01/2023) [facility] Depression Screening Abstracted Historical Provider HEALTH MAINTENANCE Final Result * Diabetes Eye Exam (02/04/2023) [facility] Diabetes: Annual Retina Eye Exam Abstracted Historical Provider HEALTH MAINTENANCE Final Result * BONE DENSITY STUDY (06/14/2022 10:24 AM EST) Anatomical Region Laterality Modality Bone Densitometr y 04/29/2022 4:10 PM EDT Narrative 06/17/2022 9:56 AM EST Bone density study. Indication and risk factors: Postmenopausal female. Screening for osteoporosis. Comparisons: None available. Study acquired on a [employer] densitometer. Imaging of the lumbar spine and [...] on 06/17/2022 9:56 AM. Workstation Name - What They Like Procedure Note Dali Bah MD - 08/01/2023 Bone density study. Indication and risk factors: Postmenopausal female. Screening forosteoporosis. Comparisons: None available. Study acquired on a [employer] densitometer. Imaging of thelumbar spine and hip [...] Bah on 06/17/2022 9:56 AM.Workstation Name - What They Like Isidro Ann DO IMG DXA PROCEDURES Alice l Result * Hm Colonoscopy (09/10/2021) Colonoscopy No Interpretation , Abstracted Anatomical Region Laterality Modality Other us Historical Provider HEALTH MAINTENANCE Final Result from Last 3 Months or Most Recently Relevant to Health Maintenance Insurance [employer] MED[employer]ARE Care Teams Shear Scrapman Relationship Specialty Start Date End Date Tenisha Cruz MD [address] [place] [address] PCP - General Internal Medicine 02/20/22
--- OUTSIDE RECORDS SUMMARY | 2025-02-09 14:31 | XMS_ITS | Clinical Summary ---
Author Organization [facility] Address [address] [place] [address] Care Team Providers Care Tube Building Machine Operator Name Role Phone Ruy Guido Primary Care [...] - 2023-2 5 season) 2024 Influenza (#1) 2025 RSV (1 - 1-dose 75+ series) 2032 HPV Vaccine (No Doses Required) Completed Hep A Aged Out No longer eligi [...] Smear Discontinued Zoster (Zostavax) Discontinued Care Teams Tube Building Machine Operator Relationship Specialty Start Date End Date Ruy Guido PCP - General 02/03/23
--- OUTSIDE RECORDS SUMMARY | 2025-02-09 14:31 | XMS_ITS | Clinical Summary ---
Author Organization [facility] Address [address] [place] [address] Phone Care Team Providers Care Fund Manager Name Role Phone Skip Levy MD Primary Care Provider Unavail able Allergies No known active allergies Medications aspirin 81 MG chewable tablet Chew 81 mg in the morning. Active atorvastatin (LIPITOR) 20 MG tablet Take 20 mg by mouth 1 (one) time each day 1 Active Canagliflozin (Invokana) 100 MG tablet Take 1 tablet by mouth 1 (one) time each day 3 Active cetirizine (ZyrTEC) 10 MG tablet Take 10 mg by mouth 1 (one) time each day 3 Active folic acid (FOLVITE) 1 MG tablet Take 1,000 mcg by mouth 1 (one) time each day 3 Active furosemide (LASIX) 20 MG tablet Take 20 mg by mouth 1 (one) time each day 3 Active gabapentin (NEURONTIN) 300 MG capsule Take 600 mg by mouth in the morning and 600 mg at noon and 600 mg in the evening. 3 Active linaGLIPtin (Tradjenta) 5 MG tablet Take 5 mg by mouth 1 (one) time each day 1 Active metFORMIN XR (GLUCOPHAGE-XR) 500 MG 24 hr tablet TAKE 2 TABLETS (1,000 MG TOTAL) BY MOUTH 2 (TWO) TIMES A DAY BEFORE BREAKFAST AND DINNER. 3 Active Multiple Vitamins-Minera ls (Strovite ONE) tablet Take 1 tablet by mouth 1 (one) time each day 7 Active Na Sulfate-K Sulfate-Mg Sulf 17.5-3.13-1.6 GM/177ML solution Follow directions provided by physician's office. 1 Active fluticasone (FLONASE) 50 MCG/ACT nasal spray SPRAY/APPLY 1 SPRAY IN EACH NOSTRIL DAILY 3 Active amLODIPine (NORVASC) 10 MG tablet Take 10 mg by mouth 1 (one) time each day 3 Active triamcinolone (KENALOG) 0.1 % cream APPLY TO AFFECTED AREA TWICE A DAY 3 Active valsartan (DIOVAN) 80 MG tablet TAKE 1 TABLET BY MOUTH 1 TIME EACH DAY. 90 tablet 3 5 Active Jardiance 10 MG tablet Take 10 mg by mouth every morning 5 Active Myrbetriq 25 MG tablet sustained-relea se 24 hour Take 25 mg by mouth in the morning. 4 Active Active Problems Problem Noted Date Diagnosed [...] Type 2 diabetes mellitus in obese 05/13/2017 Immunizations Immunization Administration Dates Next Due Influenza Vaccine, Quadrival [...] Sign Reading Time Taken Comments Blood Pressure 124/70 09/14/2024 3:01 PM EDT Pulse 105 09/14/2024 3:01 PM EDT Temperature - - Respiratory Rate - - Oxygen Saturation 94% 08/26/2023 1:35 PM EST Inhaled Oxygen Concentration - - Weight 77.1 kg (170 lb) 09/14/2024 3:01 PM EDT Height - - Body Mass Index - - Plan of Treatment Upcoming Encounters Date Type Department Care Team (Late st Contact Info) Description 09/13/2025 1:15 PM EDT Office Visit [facility] [address] [facility] [address] [place] [id number] Gabriel Head MD [address] [place] [address] Health Maintenance Due Date Last Done Comments Breast Cancer Screening 1955 Colorectal Cancer Screening: Annual FOBT 2006 Colorectal Cancer Screening: Colonoscopy 2006 Colorectal Cancer Screening: Sigmoidoscopy 2006 Pneumococcal Vaccine: 50+ Years (2 of 2 - PPSV23, PCV20, or PCV21) 06/14/2022 04/19/2022 Diabetes: Ophthalmology Exam 08/08/2022 Diabetes: Pedal Pulse Checked 08/08/2022 Diabetes: Sensory Foot Exam 08/08/2022 Diabetes: Visual Foot Exam 08/08/2022 Diabetes: Hemoglobin A1C 11/07/2024 025, 08/01/2023, 07/17/2022 Influenza Vaccine (#1) 2025 4, 03/07/2023, 02/22/2022, Additional history exists Pneumococcal Vaccine: Peds (0 to 5 Years) and At-Risk Patients (6 to 49 Years) Discontinued 04/19/2022 Hepatitis B Vaccine Aged Out No longe r eligible based on patient's age to complete this topic Insurance Medicaid [place] UHC Medicare Care Teams Fund Manager Relationship Specialty Start Date End Date Skip Levy MD [address] [place] [address] PCP - General Internal Medicine 02/04/23
--- OUTSIDE RECORDS SUMMARY | 2025-02-09 14:31 | XMS_ITS | Clinical Summary ---
Author Organization [facility] [employer] Address [address] [place] [address] Care Team Providers Care Cabinetmaker Maintenance Name Role Phone Unavailable Primary Care Provider [...] Adults 18 yrs or above (or HM Modifier)([facility]) 1975 Hepatitis C Virus Infection in Adolescents and Adults: Screening (or Modifier) ([facility]) 1975 SDIN Screening Reminder: Suzie castillo for all adults ([facility]) 1975 Tobacco Smoking Cessation: i n Adults excluding Women: Behavioral and Pharmacotherapy Interventions ([facility]) 1975 Colorectal Cancer Screening 45 -75 Yrs (or HM Modifier) 2002 Colorectal Cancer: FLEXIBLE SIGMOIDOSCOPY Screening every 5 yrs 2002 Colorectal Cancer: Fecal Immunochemical Test (FIT) Annually [facility] 2002 Colorectal Cancer: High-sens itivity gFOBT Screening Annually [facility] 2002 Colorectal Cancer: Stool Col oguard Screening every 3 yrs 2002 Colorectal Cancer:CT Colonog brett Screening every 5 yrs 2002 Breast Cancer: Screening Suzie anna age 50-74 yrs (or HM Modifier)([facility]) 2007 Pneumococcal Vaccination Scr eening: Patients 50+ yrs of age ([facility]) (1 of 1 - PCV) 2007 Zoster/Shingles Vaccine Seri es Screening: Adults aged 18+ yrs (or HM Modifiers)([facility]) (1 of 2) 2007 Osteoporosis Screening to Pr event Fractures: Women aged 65 years+ ([facility]) 2022 COVID-19 Vaccine Screening: Initial Series and Booster Status ([facility]) ( - 2023- season) 2024 06/12/2021, 10/12/2020, 09/21/2020 Flu Vaccination: Ages 65+: Y early High Dose Recommended (or Modifier)([facility]) 01/28/2025 03/17/2020 DTaP/Tdap/Td Vaccines ([facility]) (2 - Td or Tdap) 10/28/2027 10/27/2017 RSV Vaccines (1 - 1-dose 75+ series) 2032 [employer] Not on file Insurance [place] MEDICAID
== END 2025-02-09 14:34 | disposition home or self-care (01) ==
LOC: HO.HKAE 14:14
PROVIDERS: PCP Internal Medicine; Visit Provider Internal Medicine Hypertension Specialist
DX: I10 Essential (primary) hypertension (principal); E87.1 Hypo-osmolality and hyponatremia
CPT/HCPCS: 99214

== ENCOUNTER → 2025-02-09 14:13 | Outpatient (BNVA) | payer MEDICARE, SELFPAY | PROVIDERS: PCP Internal Medicine; Visit Provider Internal Medicine Hypertension Specialist | DX: I10 Essential (primary) hypertension (principal); E87.1 Hypo-osmolality and hyponatremia | CPT/HCPCS: 99212 ==